=== PATIENT | female | born 1950 | race Caucasian/White ===

== ENCOUNTER 2020-02-12 07:02 | Day surgery (SDC) | payer MEDICARE, SELFPAY ==
--- NOTE | 2020-02-11 14:04 | P.CONAN_ITS ---
Documented by User: Sheila Garcia 02/11/20 14:12 HPI - Anesthesia Eval Consult details Narrative: 69yo F for [facility] Past Medical History Medical History Afib Allergic rhinitis Hyperlipidemia Surgical History Surgical History H/O section H/O dilation and curettage Social History Social History Smoking Status: Never smoker Second Hand Smoke Exposure: No Use of substances other than those prescribed or required for medical reasons: No Advance Directives: No Advance Directives Information Provided: No Advance Directives on File: No Recently lost weight without trying: No Meds Allergies Allergy/AdvReac Type Severity Reaction Status Date / Time No Known Allergies Allergy Verified 02/12/20 07:26 Home Medications Medication Instructions Recorded Confirmed Type flecainide 1 tab PO BID 02/12/20 02/12/20 History metoprolol succinate 0.5 tab PO DAILY 02/12/20 02/12/20 History rivaroxaban [Xarelto] 1 tab PO DAILY 02/12/20 02/12/20 History rosuvastatin 1 tab PO DAILY 02/12/20 02/12/20 History Exam Exam Date and Time: February 11, 2020 1404 Pertinent Lab Results Pertinent Lab Results: 01/16/20 CBC and Profile grossly nml EKG 12/11/19 NSR @ 73, LAFB, ?LVH Stress MIBI 01/01/20 = Neg Assessment and Plan Assessment Anesthesia Assessment: Chart Reviewed (02/11/20 HT) Documented by User: Maryann Willis 02/12/20 08:24 [facility] Past Medical History Medical History Afib Allergic rhinitis Hyperlipidemia Surgical History Surgical History H/O section H/O dilation and curettage Social History Social History Smoking Status: Never smoker Second Hand Smoke Exposure: No Use of substances other than those prescribed or required for medical reasons: No Advance Directives: No Advance Directives Information Provided: No Advance Directives on File: No Recently lost weight without trying: No Meds Allergies Allergy/AdvReac Type Severity Reaction Status Date / Time No Known Allergies Allergy Verified 02/12/20 07:26 Home Medications Medication Instructions Recorded Confirmed Type flecainide 1 tab PO BID 02/12/20 02/12/20 History metoprolol succinate 0.5 tab PO DAILY 02/12/20 02/12/20 History rivaroxaban [Xarelto] 1 tab PO DAILY 02/12/20 02/12/20 History rosuvastatin 1 tab PO DAILY 02/12/20 02/12/20 History Exam Height,Weight and Vital Signs: Vital Signs Temp Pulse Resp BP Pulse Ox 02/12/20 07:32 97.1 F 65 18 164/79 H 97 Intake and Output 02/11/20 02/12/20 02/12/20 22:59 06:59 14:59 Other: NPO Yes Weight 83.915 kg Patient Weight 02/13/20 06:59 Weight 83.915 kg Vital Signs Temperature 97.1 F 02/12/20 07:32 Pulse Rate 65 02/12/20 07:32 Respiratory Rate 18 02/12/20 07:32 Blood Pressure 164/79 H 02/12/20 07:32 Pulse Oximetry 97 02/12/20 07:32 Temperature 97.1 F 02/12/20 07:32 Pulse Rate 65 02/12/20 07:32 Respiratory Rate 18 02/12/20 07:32 Blood Pressure 164/79 H 02/12/20 07:32 Pulse Oximetry 97 02/12/20 07:32 Airway Mallampati Class: II TM Dist: >3cm Neck ROM: Full Partial: Upper and Lower Heart: RRR Lungs: Clear Assessment and Plan Assessment Anesthesia Assessment: Anesthesia Plan Discussed, Consent Obtained and Chart Reviewed Final Anesthetic Review NPO: Yes ASA Class: II Final Preanesthetic Review: No Changes in Pt Med Stat, Meds & Allergies Reviewed, Consent Obtained/Reviewed, Med/Surg/Anes Hx Reviewed and Anes Risks/Benef Reviewed Patient Risk: Intermediate Procedure Risk: Intermediate Anesthetic Plan Anesthetic Plan: GA Disposition: Standard PACU Documented by User: Joss Tellez CRNA 02/12/20 08:21 [facility] Past Medical History Medical History Afib Allergic rhinitis Hyperlipidemia Surgical History Surgical History H/O section H/O dilation and curettage Social History Social History Smoking Status: Never smoker Second Hand Smoke Exposure: No Use of substances other than those prescribed or required for medical reasons: No Advance Directives: No Advance Directives Information Provided: No Advance Directives on File: No Recently lost weight without trying: No Meds Allergies Allergy/AdvReac Type Severity Reaction Status Date / Time No Known Allergies Allergy Verified 02/12/20 07:26 Home Medications Medication Instructions Recorded Confirmed Type flecainide 1 tab PO BID 02/12/20 02/12/20 History metoprolol succinate 0.5 tab PO DAILY 02/12/20 02/12/20 History rivaroxaban [Xarelto] 1 tab PO DAILY 02/12/20 02/12/20 History rosuvastatin 1 tab PO DAILY 02/12/20 02/12/20 History
[2020-02-12] VITALS (7 sets, daily range): BP systolic 132–164; BP diastolic 67–79; PULSE 65–92; RESP 16–18; TEMP 36.1–36.2; O2SAT 97–98; BMI 32.8
--- NOTE | 2020-02-12 07:39 | P.CONAN_ITS ---
FORMERLY [facility], [facility] Past Medical History Medical History (Updated 02/12/20 @ 07:24 by Diana Waters RN) Afib Allergic rhinitis Hyperlipidemia Surgical History Surgical History (Updated 02/11/20 @ 14:06 by Sheila Garcia) H/O section H/O dilation and curettage Social History Social History Advance Directives: No Advance Directives Information Provided: No Meds Allergies Allergy/AdvReac Type Severity Reaction Status Date / Time No Known Allergies Allergy Verified 02/12/20 07:26 Home Medications Medication Instructions Recorded Confirmed Type flecainide 1 tab PO BID 02/12/20 02/12/20 History metoprolol succinate 0.5 tab PO DAILY 02/12/20 02/12/20 History rivaroxaban [Xarelto] 1 tab PO DAILY 02/12/20 02/12/20 History rosuvastatin 1 tab PO DAILY 02/12/20 02/12/20 History Exam Exam Date and Time: February 12, 2020 0739 Height,Weight and Vital Signs: Height 5 ft 3 in Weight 83.915 kg Last Vital Signs Temp 97.1 F 02/12/20 07:32 Pulse 65 02/12/20 07:32 Resp 18 02/12/20 07:32 BP 164/79 H 02/12/20 07:32 Pulse Ox 97 02/12/20 07:32 Airway Mallampati Class: II TM Dist: >3cm Neck ROM: Full Partial: Upper and Lower Heart: RRR Lungs: Clear
[2020-02-12] MEDS: Acetaminophen 325 MG TABLET 650 MG PO (07:45)
[2020-02-12] MEDS: Lactated Ringers 1,000 ML 100 ML IVCONT (08:00)
--- NOTE | 2020-02-12 13:53 | P.BOP_ITS ---
Brief Operative Note Date of procedure: 02/12/20 Pre-op diagnosis: Symptomatic cholelithiasis Post-op diagnosis: same Procedure: Laparoscopic cholecystectomy Implants: none Anesthesia: DEANNE Surgeon: Denilson Wilkins Production Material Handler: Mulu Alas Estimated blood loss (mL): 2 Pathology: other (gallbladder) Condition: stable Disposition: PACU
--- NOTE | 2020-02-12 15:19 | W.PM.OPN ---
Operative Note Operative Note Narrative: Preoperative diagnosis: Symptomatic cholelithiasis Postoperative diagnosis: Symptomatic cholelithiasis Procedure: Laparoscopic cholecystectomy Indication for procedure: This is a 69-year-old female presented with complaints of abdominal pain in the right upper quadrant noted on ultrasound the abdomen to have multiple gallstones within the gallbladder. She presents today for laparoscopic or possible open cholecystectomy. Operative findings: Patient was found to have multiple gallstones within the gallbladder with minimal inflammation surrounding the gallbladder wall. No adhesions were noted to the gallbladder. Specimen: Gallbladder Estimated blood loss: 5 mL Complications: None Procedure details: Patient was brought to the OR and placed in a supine position. After administering general anesthesia the patient's abdomen was prepped with ChloraPrep and draped in a sterile fashion. A surgical time-out was called the consent confirmed. Patient received preoperative antibiotics and Venodyne boots were in place. Local anesthesia consisting of 0.75% Sensorcaine was then infiltrated around the umbilicus. A 5 mm incision was then made around the umbilicus. Veress needle was then inserted while elevating abdominal cavity with towel clips. After a positive drop test, the abdomen was insufflated to a pressure of 15 mm of mercury. The Veress needle was removed and a 5 mm trocar inserted. The camera was inserted in the abdomen explored. No injury was noted from the insertion site. A 12 mm trocar was then placed in the epigastrium and 2 5 mm trocars placed in the right upper quadrant. The patient was then placed in a reverse Trendelenburg position and rotated to the left. The gallbladder was grasped with the fundus retracted cephalad. Infundibulum was grasped with and retracted away from the liver bed. Peritoneum was then dissected off of the infundibulum to reveal the junction with the cystic duct. Cystic artery was noted just below a node of Calot slightly medial to the cystic duct. After obtaining a critical view the cystic duct and cystic artery were doubly clipped and divided. The gallbladder was then dissected off the liver bed using electrocautery. Hemostasis was assured all times using electrocautery. The gallbladder was then placed in an Endo-Catch bag and brought out through the epigastric incision. The liver bed was then irrigated and suctioned dry. No bleeding or bile duct leak could be identified. CO2 was then evacuated and all trocars removed. Fascia was closed at the epigastric incision using a [id number] 0 Polysorb suture. Skin was closed in all incisions using a subcuticular 4 0 Polysorb suture. Steri-Strips 2 x 2 gauze and Tegaderm were then applied. The patient tolerated the procedure well. Sponge, instrument and needle counts were reported as correct. The patient was transferred to PACU in stable condition.
== END 2020-02-12 11:40 | disposition home or self-care (01) ==
PROVIDERS: PCP Internal Medicine; Visit Provider Surgery
PROC: 0FT44ZZ Resection of Gallbladder, Percutaneous Endoscopic Approach (ICD-10-PCS; CPT 47562; principal; 2020-02-12 08:30)
DX: K80.10 Calculus of gallbladder with chronic cholecystitis without obstruction (principal); I48.91 Unspecified atrial fibrillation; J30.9 Allergic rhinitis, unspecified; E78.5 Hyperlipidemia, unspecified; Z79.899 Other long term (current) drug therapy
CPT/HCPCS: 47562; 88304; J1100; J2250; J2405; J3010; Q0163

== ENCOUNTER → 2020-02-20 11:03 | Outpatient (BNVA) | payer MEDICARE, SELFPAY | PROVIDERS: PCP Internal Medicine; Visit Provider Surgery | DX: K80.20 Calculus of gallbladder without cholecystitis without obstruction (principal) | CPT/HCPCS: 99212 ==

== ENCOUNTER 2020-02-20 17:48 | Outpatient (REF) | payer MEDICARE, SELFPAY | END 2020-02-20 17:49 | disposition home or self-care (01) | LOC: HO.LNP 17:48 | PROVIDERS: Visit Provider Hospitalist | DX: R30.0 Dysuria (principal) | CPT/HCPCS: 87086; 87088; 87186 ==

== ENCOUNTER → 2020-03-22 12:18 | Outpatient (BNVA) | payer MEDICARE, SELFPAY | PROVIDERS: PCP Internal Medicine; Referring Provider Internal Medicine; Visit Provider Internal Medicine Cardiovascular Disease | DX: I48.0 Paroxysmal atrial fibrillation (principal); E78.5 Hyperlipidemia, unspecified; Z79.01 Long term (current) use of anticoagulants; Z79.899 Other long term (current) drug therapy | CPT/HCPCS: 93005; 99212 ==

== ENCOUNTER → 2020-03-31 13:16 | Outpatient (BNVA) | payer MEDICARE, SELFPAY | PROVIDERS: PCP Internal Medicine; Visit Provider Surgery | DX: K64.4 Residual hemorrhoidal skin tags (principal); K64.8 Other hemorrhoids; L29.0 Pruritus ani | CPT/HCPCS: 46600; 99202 ==

== ENCOUNTER 2020-06-01 06:53 | Outpatient (REF) | payer MEDICARE, SELFPAY ==
[2020-06-01 07:25] LABS: Hematocrit 44.3 % (37-47); Hemoglobin 14.5 g/dl (12.0-16.0); Mean Corpuscular HGB Conc 32.7 g/dl (31.0-35.0); Mean Corpuscular Hemoglobin 28.8 pg (27.0-33.0); Mean Corpuscular Volume 88.1 fL (80-98); Mean Platelet Volume 11.4 fL (9.4-12.3); Platelet Count 204 X10*3/uL (160-400); Red Blood Count 5.03 X10*6/uL (4.20-5.50); Red Cell Distribution Width 12.3 % (11.0-16.0); White Blood Count 5.2 X10*3/uL (4.8-10.8)
[2020-06-01 07:44] LABS: Alanine Aminotransferase 19 U/L (0-31); Alkaline Phosphatase 73 U/L (39-117); Anion Gap 12 (12-20); Aspartate Amino Transferase 20 U/L (5-31); Bilirubin Total 1.2 mg/dL (0.0-1.0); Blood Urea Nitrogen 16 mg/dL (9-16); Calcium 9.2 mg/dL (8.4-10.2); Carbon Dioxide 32 mmol/L (22-29); Chloride 104 mmol/L (96-108); Cholesterol 197 mg/dL; Estimated Glomerular Filt Rate > 60; Glucose Fasting 93 mg/dL (60-99); HDL Cholesterol 42 mg/dL; LDL Cholesterol Calculated 109 mg/dl; Potassium 4.5 mmol/l (3.3-5.1); Sodium 143 mmol/L (135-145); Total Protein 6.1 g/dL (6.5-8.0); Triglycerides 232 mg/dL
[2020-06-01 08:05] LABS: Thyroid Stimulating Hormone 1.13 uIU/mL (0.32-4.0)
== END 2020-06-01 06:54 | disposition home or self-care (01) ==
LOC: HO.LAB 06:53
PROVIDERS: PCP Internal Medicine; Visit Provider Internal Medicine
DX: E78.5 Hyperlipidemia, unspecified (principal); L29.0 Pruritus ani; I48.0 Paroxysmal atrial fibrillation
CPT/HCPCS: 36415; 80053; 80061; 84443; 85027

== ENCOUNTER 2020-07-21 08:56 | Outpatient (REF) | payer MEDICARE, SELFPAY ==
[2020-07-22 09:19] LABS: BV Int Neg Control Negative (Negative); BV Int Pos Control Positive (Positive)
== END 2020-07-21 08:57 | disposition home or self-care (01) ==
LOC: HO.LAB 08:56
PROVIDERS: Visit Provider Nurse Practitioner Family
DX: R35.1 Nocturia (principal); N94.819 Vulvodynia, unspecified
CPT/HCPCS: 87086; 87480; 87510; 87660

== ENCOUNTER → 2020-09-16 08:49 | Outpatient (BNVA) | payer MEDICARE, SELFPAY | PROVIDERS: PCP Internal Medicine; Visit Provider Internal Medicine Cardiovascular Disease | DX: I48.0 Paroxysmal atrial fibrillation (principal); E78.5 Hyperlipidemia, unspecified | CPT/HCPCS: 93005; 99212 ==

== ENCOUNTER → 2021-03-28 08:42 | Outpatient (BNVA) | payer MEDICARE, SELFPAY | PROVIDERS: PCP Internal Medicine; Visit Provider Internal Medicine Cardiovascular Disease | DX: I48.0 Paroxysmal atrial fibrillation (principal); E78.5 Hyperlipidemia, unspecified | CPT/HCPCS: 93005; 99212 ==

== ENCOUNTER → 2021-09-26 08:38 | Outpatient (BNVA) | payer MEDICARE, SELFPAY | PROVIDERS: PCP Internal Medicine; Visit Provider Internal Medicine Cardiovascular Disease | DX: I48.0 Paroxysmal atrial fibrillation (principal); E78.5 Hyperlipidemia, unspecified | CPT/HCPCS: 93005; 99212 ==

== ENCOUNTER → 2022-04-03 09:00 | Outpatient (BNVA) | payer MEDICARE, SELFPAY | PROVIDERS: PCP Internal Medicine; Visit Provider Internal Medicine Cardiovascular Disease | DX: R94.31 Abnormal electrocardiogram [ECG] [EKG] (principal); I44.60 Unspecified fascicular block | CPT/HCPCS: 93005 ==

== ENCOUNTER 2022-04-18 08:26 | Outpatient (REF) | payer MEDICARE, SELFPAY ==
--- NOTE | ~2022-04-18 | XR_ITS ---
EXAMINATION: XR LUMBOSACRAL SPINE CLINICAL INFORMATION: Low back pain COMPARISON: None TECHNIQUE: Three views of the lumbosacral spine. FINDINGS: 5 nonrib-bearing lumbar-type vertebral bodies. No acute visible fracture or dislocation. Dextrocurvature centered at L2-L3. Grade 1 anterolisthesis of L1 on L2. Moderate multilevel degenerative changes with large lateral bridging osteophytes, disc space narrowing, endplate sclerosis, osteophyte formation, and lower lumbar spine facet arthropathy. Vertebral body heights and disc spaces are otherwise maintained. Posterior elements are intact. Paraspinal soft tissues are unremarkable. Atherosclerotic calcifications of the abdominal aorta. Bowel gas is unremarkable. Pelvic phleboliths are noted. Surgical clips in the right upper quadrant abdomen. XR/XR lumbar spine 2-3V IMPRESSION: 1. No acute visible fracture or dislocation. 2. Dextrocurvature centered at L2-L3. 3. Grade 1 anterolisthesis of L1 on L2. 4. Moderate multilevel degenerative changes.
== END 2022-04-18 08:27 | disposition home or self-care (01) ==
LOC: HO.XRAY 08:26
PROVIDERS: PCP Internal Medicine; Visit Provider Physician Assistant
DX: M54.50 Low back pain, unspecified (principal)
CPT/HCPCS: 72100

== ENCOUNTER → 2022-10-16 09:02 | Outpatient (BNVA) | payer MEDICARE, SELFPAY | PROVIDERS: PCP Internal Medicine; Visit Provider Internal Medicine Cardiovascular Disease | DX: I48.0 Paroxysmal atrial fibrillation (principal); E78.5 Hyperlipidemia, unspecified | CPT/HCPCS: 93005; 99212 ==

== ENCOUNTER 2023-04-16 08:34 | Outpatient (AMB) | payer MEDICARE, SELFPAY ==
--- NOTE | 2023-04-16 09:17 | AM.OFFVISNUR ---
Intake Intake Visit Reasons: EKG Intake Note: Pt here for f/up EKG. H/O afib. Feels good. No complaints. Hat Liner Required: No Accompanied by: Self / Same As Patient Allergies ciprofloxacin [From Cipro] Allergy (Unknown, Verified 03/28/21 08:44) Unknown nitroglycerin Allergy (Unknown, Verified 03/28/21 08:44) Unknown oxybutynin Allergy (Unknown, Verified 03/28/21 08:44) Unknown penicillin G Allergy (Unknown, Verified 03/28/21 08:44) Unknown sulfamethoxazole [From Bactrim] Allergy (Unknown, Verified 03/28/21 08:44) Unknown trimethoprim [From Bactrim] Allergy (Unknown, Verified 03/28/21 08:44) Unknown Medication List - Last Reconciled 04/16/23 by Sally Cooper, RN flecainide 50 mg PO BID menthol-zinc oxide 0.44-20.6 % (Calmoseptine) 1 appl topical QID PRN metoprolol succinate ER 12.5 mg (1/2 x 25 mg) PO DAILY 90 days rivaroxaban (Xarelto) 20 mg PO DAILY rosuvastatin 5 mg PO 3x a week; Followed by:: Dr. Pedro Nursing Note EKG completed, EKG auto-reading sinus rhythm at 68bpm. EKG on Dr. Pedro's desk for review and signature. Office Procedures EKG [id number], Complete Coding Level of Care Code Est Pt Level 1 (08217) CPT Codes EKG - CPT: 84198-[id number], Complete ([id number]) Time Spent (min) 15 Comment EKG, Medication Reconciliation, Documentation, Education
== END 2023-04-16 09:03 | disposition home or self-care (01) ==
PROVIDERS: PCP Internal Medicine; Visit Provider Internal Medicine
DX: I44.4 Left anterior fascicular block (principal); R94.31 Abnormal electrocardiogram [ECG] [EKG]
CPT/HCPCS: 93010

== ENCOUNTER → 2023-04-16 08:34 | Outpatient (BNVA) | payer MEDICARE, SELFPAY | PROVIDERS: PCP Internal Medicine; Visit Provider Internal Medicine | DX: I44.4 Left anterior fascicular block (principal); R94.31 Abnormal electrocardiogram [ECG] [EKG] | CPT/HCPCS: 93005 ==

== ENCOUNTER 2023-10-22 09:03 | Outpatient (REF) | payer MEDICARE, SELFPAY ==
[2023-10-22 10:50] LABS: Hematocrit 46.6 % (37.0-47.0); Hemoglobin 15.7 g/dl (12.0-16.0); Mean Corpuscular HGB Conc 33.7 g/dl (31.0-35.0); Mean Corpuscular Volume 89.1 fL (80.0-98.0); Mean Platelet Volume 11.6 fL (9.4-12.3); Platelet Count 189 X10*3/uL (160-400); Red Blood Count 5.23 X10*6/uL (4.20-5.50); White Blood Count 7.2 X10*3/uL (4.8-10.8)
[2023-10-22 11:12] LABS: Anion Gap 10 (12-20); Blood Urea Nitrogen 19 mg/dL (9-16); Carbon Dioxide 33 mmol/L (22-29); Chloride 104 mmol/L (96-108); Cholesterol 177 mg/dL (<200); Estimated Glomerular Filt Rate > 60; Glucose Random 78 mg/dL (60-115); HDL Cholesterol 45 mg/dL (>40); LDL Cholesterol Calculated 80 mg/dL (<100); Potassium 4.1 mmol/L (3.3-5.1); Sodium 143 mmol/L (135-145); Triglycerides 261 mg/dL (<150)
== END 2023-10-22 09:04 | disposition home or self-care (01) ==
LOC: HO.LAB 09:03
PROVIDERS: PCP Internal Medicine; Visit Provider Internal Medicine Cardiovascular Disease
DX: I48.0 Paroxysmal atrial fibrillation (principal); E78.5 Hyperlipidemia, unspecified
CPT/HCPCS: 36415; 80048; 80061; 85027; 93005; 99212

== ENCOUNTER 2023-10-22 09:03 | Outpatient (AMB) | payer MEDICARE, SELFPAY ==
[2023-10-22 09:04] VITALS: BP 120/68; PULSE 76; BMI 33.3
--- NOTE | 2023-10-22 09:04 | MHC.OFFVIS ---
Vital Signs 10/22/23 09:04 Height 5 ft 3 in Weight 188 lb BMI 33.3 BP 120/68 Blood Pressure Location Lt brachial Position Sitting Pulse 76 Intake Visit Reasons: 1 year follow up Intake Note: 1 year follow-up with ekg feeling good High Worker Required: No Allergies ciprofloxacin [From Cipro] Allergy (Unknown, Verified 03/28/21 08:44) Unknown nitroglycerin Allergy (Unknown, Verified 03/28/21 08:44) Unknown oxybutynin Allergy (Unknown, Verified 03/28/21 08:44) Unknown penicillin G Allergy (Unknown, Verified 03/28/21 08:44) Unknown sulfamethoxazole [From Bactrim] Allergy (Unknown, Verified 03/28/21 08:44) Unknown trimethoprim [From Bactrim] Allergy (Unknown, Verified 03/28/21 08:44) Unknown Medication List - Last Reconciled 10/22/23 by Devendra Pedro MD flecainide 50 mg PO BID menthol-zinc oxide 0.44-20.6 % (Calmoseptine) 1 appl topical QID PRN metoprolol succinate ER 12.5 mg (1/2 x 25 mg) PO DAILY 90 days rivaroxaban (Xarelto) 20 mg PO DAILY rosuvastatin 5 mg PO 3x a week; HPI Comments Details: Rabia comes for follow-up. She denies any symptoms of prolonged palpitation irregular heartbeat. Says earlier in this year she had very stressful personal life due to her 's health situation. During that time she did not have any cardiac symptoms. She remains very active and has no exertional chest pain or shortness of breath. Denies any bleeding issues or neurologic events. No orthopnea, PND, leg edema. Taking all her medications regularly. [facility] Medical History Allergic rhinitis GERD (gastroesophageal reflux disease) Hyperlipidemia Internal and external hemorrhoids without complication Paroxysmal atrial fibrillation Pruritus ani Vitamin D deficiency Vulvodynia Surgical History H/O section H/O dilation and curettage History of laparoscopic cholecystectomy (02/12/20) Family History Father Lung cancer CVD (cardiovascular disease) Mother No problems noted. Daughter CVD (cardiovascular disease) Afib Social History Alcohol intake: never Patient Tobacco Use Status: Never used Tobacco Second Hand Smoke Exposure: No Review of Systems Const Denies chills, Denies fatigue, Denies fever(s), Denies frequent falls, Denies weakness, Denies weight gain and Denies weight loss ENT Denies dizziness Card Denies chest pain, Denies leg edema, Denies lightheadedness, Denies palpitations, Denies dyspnea, Denies dyspnea on exertion, Denies orthopnea and Denies other (loss of consciousness) Resp Denies cough, Denies dyspnea and Denies dyspnea on exertion GI Denies hematochezia and Denies change in stool character Musc Denies abnormal gait, Denies muscle weakness, Denies numbness, Denies radiating pain into limb and Denies tingling Neuro Denies abnormal gait, Denies dizziness, Denies frequent falls, Denies numbness, Denies tingling and Denies weakness Endo Denies fatigue and Denies palpitations Physical Exam Vital Signs: Last Vital Signs Pulse 76 10/22/23 09:04 BP 120/68 10/22/23 09:04 BMI result Body Mass Index 33.3 Const General: cooperative, comfortable, no acute distress, alert, awake and well groomed Nutritional Appearance: obese Orientation/consciousness: patient oriented x3 Limitations: no limitations Neck Neck: Yes trachea midline, Yes supple and Yes no JVD Resp Effort & Inspection: normal respiratory effort Auscultation: clear to auscultation bilaterally Cardio Jugular venous distension: no JVD Palpation: normal PMI Rate: regular rate Rhythm: regular rhythm Heart sounds: S1 normal heart sound present and S2 normal heart sound present GI Auscultation: normal bowel sounds Skin General skin exam: no rashes or lesions noted Neuro General: patient oriented x3 and no focal motor deficits Extrem General: Yes no clubbing, cyanosis or edema Psych Appearance: grossly normal Office Procedures EKG Details: EKG shows normal sinus rhythm with left axis deviation with QS pattern in lead V1 V2 with mildly increased QTC interval [id number], Complete Assessment & Plan Assessment & Plan (1) Paroxysmal atrial fibrillation: Code(s): I48.0 - Paroxysmal atrial fibrillation Category: Medical Plan: Highly symptomatic paroxysmal atrial fibrillation which has remained suppressed on therapy with flecainide and low-dose metoprolol therapy. Continue the same. Been the pocket approach with extra flecainide as need be. Continue avoid stimulants. Stress mitigation strategies to be pursued. Will require EKGs every 6 months which she would like to pursue through your office. She is currently on full oral anticoagulation with Eliquis which should continue. She requires semi annual renal function test and annual CBC. Advised to call me with worsening symptoms. She is encouraged to continue to participate in regular physical activity and weight loss program. She understands and agrees. (2) Hyperlipidemia: Code(s): E78.5 - Hyperlipidemia, unspecified Category: Medical Plan: Hyperlipidemia on low-dose statin therapy. Advised lipid panel at least on annual basis. She has currently not having any symptoms suggestive of myocardial ischemia and does not require any further testing. Will follow up in the clinic in 1 year's time, sooner p.r.n.. Will obtain echocardiogram in 1 year's time. Orders: Orders Basic Metabolic Panel Today I48.0 - Paroxysmal atrial fibrillation Complete Blood Count no Diff Today I48.0 - Paroxysmal atrial fibrillation Lipid Panel Today E78.5 - Hyperlipidemia, unspecified Basic Metabolic Panel Today E78.5 - Hyperlipidemia, unspecified Coding Level of Care Code Est Pt Level 4 (84452) Diagnoses Paroxysmal atrial fibrillation I48.0 Hyperlipidemia E78.5 CPT Codes EKG - CPT: 91722-[id number], Complete ([id number])
== END 2023-10-22 09:41 | disposition home or self-care (01) ==
PROVIDERS: PCP Internal Medicine; Visit Provider Internal Medicine Cardiovascular Disease
DX: I48.0 Paroxysmal atrial fibrillation (principal); E78.5 Hyperlipidemia, unspecified
CPT/HCPCS: 93010; 99214

== ENCOUNTER 2024-04-22 07:40 | Outpatient (REF) | payer MEDICARE, SELFPAY ==
[2024-04-22 11:14] LABS: Cholesterol 188 mg/dL (<200); HDL Cholesterol 46 mg/dL (>40); LDL Cholesterol Calculated 104 mg/dL (<100); Triglycerides 192 mg/dL (<150)
== END 2024-04-22 07:41 | disposition home or self-care (01) ==
LOC: HO.10HDL 07:40
PROVIDERS: Visit Provider Internal Medicine Cardiovascular Disease
DX: I48.0 Paroxysmal atrial fibrillation (principal); E78.5 Hyperlipidemia, unspecified
CPT/HCPCS: 36415; 80061

== ENCOUNTER 2024-05-21 12:24 | Emergency (ER) | payer MEDICARE, SELFPAY ==
--- NOTE | ~2024-05-21 | XR_ITS ---
EXAMINATION: XR CHEST CLINICAL INFORMATION: Chest pain COMPARISON: X-ray dated May 04, 2019. TECHNIQUE: Frontal view of the chest was obtained. FINDINGS: Elevated left hemidiaphragm. Images of the interstitial lung markings with a pulmonary reticular pattern. No gross consolidation or pneumothorax. Cardiomediastinal silhouette is normal in size with calcified plaque aortic arch. Multilevel thoracic stenosis. XR/XR chest 1V IMPRESSION: Elevated left hemidiaphragm of uncertain etiology. Chronic interstitial lung disease. Electronically signed by: Boris Bentley MD 05/21/2024 01:30 PM EST
--- NOTE | 2024-05-21 12:30 | ECG_ITS ---
Test Reason : afib Blood Pressure : */* mmHG Vent. 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 rate has decreased by 69 bpm Referred By: Stephen Gomez Electronically Signed By: VINCENT JACK
[2024-05-21 12:45] VITALS: BP 160/78; PULSE 90; RESP 14; TEMP 37.2; O2SAT 93; BMI 35.1
--- NOTE | 2024-05-21 12:50 | ECG_ITS ---
Test Reason : cp Blood Pressure : */* mmHG Vent. 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 rate has increased by [address] now depressed in Lateral leads Referred By: Stephen Gomez Electronically Signed By: VINCENT JACK
--- NOTE | 2024-05-21 12:57 | ED.ARRPALP ---
HPI - Arrhythmia/Palpitations General Chief Complaint: Chest Pain Stated Complaint: Chest Pain Jaw Pain Time Seen by Provider: 05/21/24 12:40 Source: patient Mode of arrival: ambulatory Limitations: no limitations History of Present Illness ED Provider: Dr. Stephen Gomez HPI narrative: 74-year-old female with a history of hyperlipidemia, paroxysmal atrial fibrillation on Xarelto who presents emergency department for evaluation of choking episode and palpitations. The patient states that she was at lunch and she choked on a piece of cheese. She was able to cough up the cheese and then developed palpitations. The incident occurred around 12:00 hours. She states that her heart was beating rapidly and she knew that she was in atrial fibrillation. She also had bilateral jaw pain and chest pain which was 10/10 which is unusual for her. She states that her 1st episode of atrial fibrillation was 5 years prior and she was not had an episode since then. The patient is on flecainide 50 mg b.i.d. and she was instructed by her corporate director of pharmacy to take an extra 150 mg of flecainide if she felt like she was going into atrial fibrillation again. Patient took 50 mg of flecainide and then came to the emergency department for evaluation. To the emergency department she states that her chest pain had resolved but she still had bilateral jaw pain 3/10. Patient's initial EKG revealed atrial fibrillation with RVR at 155 beats per minute. Patient states she was not had any shortness of breath with exertion or chest pain with exertion. Related Data Home Medications ?Medication ?Instructions ?Recorded ?Confirmed rosuvastatin 5 mg tablet 5 mg PO .COMPLEX 03/22/20 10/22/23 Previous Rx's ?Medication ?Instructions ?Recorded menthol 0.44 %-zinc oxide 20.6 % 1 applic topical QID PRN skin 03/31/20 topical ointment in packet irritation #504 grams (Calmoseptine) flecainide 50 mg tablet 50 mg PO BID #180 tabs 02/12/24 rivaroxaban 20 mg tablet (Xarelto) 20 mg PO DAILY #90 tabs 02/12/24 metoprolol succinate 25 mg 12.5 mg (1/2 x 25 mg) PO DAILY 90 02/15/24 tablet,extended release 24 hr days #45 tabs Allergies Allergy/AdvReac Type Severity Reaction Status Date / Time ciprofloxacin Allergy Unknown Verified 05/21/24 12:49 nitroglycerin Allergy Unknown Verified 05/21/24 12:49 [From Nitroglyn] oxybutynin Allergy Unknown Verified 05/21/24 12:49 sulfamethoxazole Allergy Unknown Verified 05/21/24 12:49 [From Bactrim] trimethoprim [From Bactrim] Allergy Unknown Verified 05/21/24 12:49 Review of Systems Review of Systems: Yes all other systems are reviewed and are negative [facility] Past Medical History [facility] Narrative: Social history: She was in her is here in the emergency department with her. She denies tobacco, alcohol and drug use. Medical History Allergic rhinitis GERD (gastroesophageal reflux disease) Hyperlipidemia Internal and external hemorrhoids without complication Paroxysmal atrial fibrillation Pruritus ani Vitamin D deficiency Vulvodynia Surgical History H/O section H/O dilation and curettage History of laparoscopic cholecystectomy (02/12/20) Family History Family History Father Lung cancer CVD (cardiovascular disease) Mother No problems noted. Daughter CVD (cardiovascular disease) Afib Social History Social History Alcohol intake: never Patient Tobacco Use Status: Never used Tobacco Second Hand Smoke Exposure: No Physical Exam Vital Signs: Vital Signs: Last Vital Signs Temp 97.9 F 05/21/24 17:49 Pulse 64 05/21/24 17:49 Resp 16 05/21/24 17:49 BP 149/70 H 05/21/24 17:49 Pulse Ox 97 05/21/24 17:49 O2 Del Method Room Air 05/21/24 17:49 BMI result Body Mass Index 35.1 Initial vital signs revealed tachycardia with a rate of 150 beats per minute and elevated blood pressure 160/78 Exam: General: Awake, alert in no distress Head: Normocephalic, atraumatic EENT: PERRL, Lids normal, sclera normal, conjunctiva normal, nose normal , ears normal, throat without erythema or exudates Neck: Supple, no adenopathy Lung: breath sounds symmetric, no wheezing, rales or rhonchi Chest: symmetric movement, nontender Heart: regular rate and rhythm, normal S1, S2 no murmurs or rubs Abdomen: soft, non-tender, nondistended, normal bowel sounds Back: no vertebral tenderness, no CVAT Extremities: no deformities, moves all extremities symmetrically Neuro: Awake, alert, oriented, normal speech, cranial nerves intact, moves all extremities symmetrically Psych: Pleasant, cooperative Medications Administered Discontinued Medications Generic Name Dose Route Start Last Admin Trade Name Ashvin PRN Reason Stop Dose Admin Aspirin 81 mg 05/21/24 12:57 05/21/24 13:10 Aspirin 81 Mg Tab.Chew PO 05/21/24 12:58 81 mg ONCE STA Administration Diphenhydramine HCl 12.5 mg 05/21/24 13:18 05/21/24 14:09 Diphenhydramine Hcl 50 Mg/Ml Vial IVPUSH 05/21/24 13:19 Not Given ONCE ONE Morphine Sulfate 2 mg 05/21/24 12:58 05/21/24 13:11 Morphine Sulfate 4 Mg/Ml Cartridge IVPUSH 05/21/24 12:59 2 mg ONCE STA Administration Protocol Medical Decision Making Medical Decision Making MDM Narrative: 74-year-old female with a history of hyperlipidemia, paroxysmal atrial fibrillation on Xarelto who presents emergency department for evaluation of choking episode and palpitations. The patient knew that she was in atrial fibrillation and took an extra is a flecainide orally. Patient however had bilateral jaw pain and chest pain which was 10/10 which was new for her and she did not have this symptom when she had her last episode of atrial fibrillation 5 years prior. Patient's chest pain did resolve by the time she got to the emergency department but she had 3/10 bilateral jaw pain. Patient's initial heart rate was 150 beats per minute but the time my evaluation she had a normal heart rate and on the environmental monitoring technician she had spontaneous converted to a sinus rhythm. Differential diagnosis: ?Includes but is not limited to myocardial infarction, myocardial ischemia, atrial fibrillation with RVR, pneumothorax, electrolyte abnormalities, anemia Course: My interpretation patient's laboratory evaluation is as follows: CBC was normal. Elevated sodium 147. Elevated BUN 21. Elevated glucose 116. INR was 1.2. First troponin was 3.9 repeat troponin is due at 16:00 hours . Patient's initial 12 EKG was consistent with atrial fibrillation with RVR with a rate of 155 ST segment elevation or depression. Second EKG when the patient's spontaneously converted revealed a sinus rhythm with a rate of [address] segment elevation depression. One-view chest x-ray revealed no pneumothorax or congestive heart failure but the patient does have an elevated left hemidiaphragm but I do not think that this is related to the patient's presentation. . 17:47 The patient's repeat 3 hour troponin did go up by more than 50% from 3.9214.5 but he was below the normal limit of 17. I did discuss this with the covering corporate director of pharmacy Dr. Thao. He felt that this was not a significant increase in his most likely caused by her rapid ventricular rate. However angina needs to be considered as the cause of her chest pain and jaw pain therefore patient was advised to contact Dr. Pedro's office for a re-evaluation within the next 1-2 weeks. I told the patient that during this time she should not exert herself and take it easy. If she develops any neck, jaw, chest pain with shortness of breath with exertion and she should call 911 and return to the emergency department for re-evaluation. Admission/Observation Consideration of admission/observation: Escalation of care including admission/observation considered (Yes) Consult Healthcare Provider Management of the patient was discussed with: Label Printing Machinist Process Development Chemist, Dr. Thao Lab Data MDM Lab Attestation statement: I reviewed the patient's lab results. 05/21/24 13:06 05/21/24 13:06 Labs: Lab Results 05/21/24 05/21/24 Range/Units 13:06 16:32 WBC 5.8 (4.8-10.8) X10*3/uL RBC 4.95 (4.20-5.50) X10*6/uL Hgb 14.7 (12.0-16.0) g/dl Hct 43.6 (37.0-47.0) % MCV 88.1 (80.0-98.0) fL MCH 29.7 (27.0-33.0) pg MCHC 33.7 (31.0-35.0) g/dl RDW 13.0 (11.0-16.0) % Plt Count 191 (160-400) X10*3/uL MPV 10.7 (9.4-12.3) fL Immature Gran % (Auto) 0.3 (0.0-0.4) % Neut % (Auto) 71.0 (45-73) % Lymph % (Auto) 20.5 (20-40) % Hinds % (Auto) 6.6 (2-11) % Eos % (Auto) 1.4 (0-4) % Baso % (Auto) 0.2 (0-2) % Lymph # (Auto) 1.2 (1.2-4.9) X10*3/uL Hinds # (Auto) 0.4 (0.1-1.2) X10*3/uL Eos # (Auto) 0.1 (0.0-0.4) X10*3/uL Baso # (Auto) 0.0 (0.0-0.2) X10*3/uL Abs Immat Gran (auto) 0.02 (0.00-0.03) X10*3/uL Absolute Neuts (auto) 4.1 (2.0-8.3) x10*3/uL Absolute Nucleated RBC 0.000 (0.0-0.012) X10*3/uL Nucleated RBC % (auto) 0.0 (0.0-0.2) /100WBC PT 14.0 H (10.9-12.4) SEC INR 1.2 H (0.9-1.1) APTT 36.6 (26.0-36.8) SEC Sodium 147 H (135-145) mmol/L Potassium 4.2 (3.3-5.1) mmol/L Chloride 107 (96-108) mmol/L Carbon Dioxide 30 H (22-29) mmol/L Anion Gap 14 (12-20) BUN 21 H (9-16) mg/dL Creatinine 0.87 (0.5-1.4) mg/dL Estim Creat Clear Calc 61.3 Estimated GFR > 60 Random Glucose 116 H (60-115) mg/dL Calcium 9.4 (8.4-10.2) mg/dL Magnesium 2.1 (1.6-2.6) mg/dL Total Bilirubin 1.1 H (0.0-1.0) mg/dL AST 31 (5-31) U/L ALT 23 (0-31) U/L Alkaline Phosphatase 66 (39-117) U/L Troponin I High Sens 3.9 14.5 D (<3.5-17.0) ng/L Total Protein 6.6 (6.5-8.0) g/dL Albumin 4.1 (3.5-5.0) g/dL Independent Interpretation I performed an independent interpretation of an: EKG Interpretation: Independent interpretation patient's 1st EKG done at 12:20 hours is as follows: Atrial fibrillation with a rapid ventricular response of 155 beats per minute, normal QRS duration, prolonged QTC interval 488 millisecond, no ST segment elevation, no ST segment depression, poor R-wave progression V1 through V2, no significant T-wave abnormalities My independent interpretation of the patient's 2nd EKG done at 13:01 hours is as follows: Normal sinus rhythm rate of 86, normal KS interval, QRS duration and QTC interval, no ST segment elevation, no ST segment depression, poor R-wave progression V1 and V2 still present, no significant T-wave abnormalities My independent interpretation the patient's one-view chest x-ray is as follows: No pneumothorax, no CHF, elevated left hemidiaphragm Radiology Impression Discussion of test interpretation with radiology: I have reviewed the radiologist's reading. Radiologist Impression: XR chest 1V IMPRESSION: Elevated left hemidiaphragm of uncertain etiology. Chronic interstitial lung disease. Electronically signed by: Boris Bentley MD 05/21/2024 01:30 PM [facility] Independent Historian Clinical information obtained from an independent historian. History obtained from or confirmed by: Spouse External Record Review External record reviewed: Office record Chronic Conditions Patient?s care impacted by: Other (Hyperlipidemia) Critical Care Time Critical Care Time Critical Care Time: Yes Total Critical Care Time: 35 Attestation: Critical Care: The patient was critically ill with a high probability of imminent or life threatening deterioration. I spent greater than 30 minutes of discontinuous time evaluating the patient,delivering critical care at the bedside, discussing and evaluating pertinent data with consultants. Critical care time does not include time spent performing separately billable procedures or teaching. Total time spent performing critical care was 35 minutes. Discharge Plan Discharge Clinical Impression: Atrial fibrillation with rapid ventricular response, Chest pain, Jaw pain Patient Disposition: Home, Self-Care Instructions: Angina (ED) Additional Instructions: When you 1st came to the emergency department your EKG showed that you are in atrial fibrillation with a very fast heart rate of 155 beats per minute. You then spontaneously converted to a normal rhythm with a normal rate. Your blood work was unremarkable and your two high sensitive troponin I (marker of heart damage) were below 17 which is reassuring and suggests that you did not have a heart attack today. However, I am concerned that the pain that your having in your chest and jaw may be secondary to angina (decreased blood supply to your heart caused by blockage is in your heart arteries) I did discuss your presentation with the covering corporate director of pharmacy, Dr. Thao and he wants you to call the office to get a follow-up appointment with Dr. Pedro. I want you to take it easy, not exercise or strain yourself until your re-evaluated by Dr. Pedro. If you develop any chest, neck, jaw or arm pain with exertion or if you develop shortness of breath with exertion then I want you to return to the emergency department immediately for re-evaluation for possible heart attack or angina attack. Continue taking medications as prescribed by your providers. Follow-up with Dr. Pedro within 1-2 weeks. Please return to the emergency department if your symptoms get worse or if you develop any symptoms that are concerning to you. Prescriptions: No Action Xarelto 20 mg tablet 20 mg PO DAILY Qty: 90 3RF flecainide 50 mg tablet 50 mg PO BID Qty: 180 3RF metoprolol succinate 25 mg tablet extended release 24 hr 12.5 mg PO DAILY 90 Days Qty: 45 3RF rosuvastatin 5 mg tablet 5 mg PO .COMPLEX Rx Instructions: 5 mg PO 3x a week; Calmoseptine 0.44-20.6 % ointment in packet 1 applic topical QID PRN (Reason: skin irritation) Qty: 504 0RF Interventions: ED Discharge Assessment Last Done: 05/21/24 17:49 Discharge Date/Time: 05/21/24 17:50 Print Language: [place] Irish
[2024-05-21] MEDS: Aspirin 81 MG TAB.CHEW PO (13:10)
[2024-05-21] MEDS: Morphine Sulfate 4 MG/ML CARTRIDGE 2 MG IVPUSH (13:11)
[2024-05-21 13:12] LABS: MANUAL DIFF FLAG NO
[2024-05-21 13:17] LABS: Basophils Percent Auto 0.2 % (0-2); Eosinophils Absolute Auto 0.1 X10*3/uL (0.0-0.4); Eosinophils Percent Auto 1.4 % (0-4); Hematocrit 43.6 % (37.0-47.0); Hemoglobin 14.7 g/dl (12.0-16.0); Imm Gran Abs Auto 0.02 X10*3/uL (0.00-0.03); Imm Gran Pct Auto 0.3 % (0.0-0.4); Lymphocytes Absolute Auto 1.2 X10*3/uL (1.2-4.9); Lymphocytes Percent Auto 20.5 % (20-40); Mean Corpuscular HGB Conc 33.7 g/dl (31.0-35.0); Mean Corpuscular Hemoglobin 29.7 pg (27.0-33.0); Mean Corpuscular Volume 88.1 fL (80.0-98.0); Mean Platelet Volume 10.7 fL (9.4-12.3); Monocytes Absolute Auto 0.4 X10*3/uL (0.1-1.2); Monocytes Percent Auto 6.6 % (2-11); Neutrophils Absolute Auto 4.1 x10*3/uL (2.0-8.3); Platelet Count 191 X10*3/uL (160-400); Red Blood Count 4.95 X10*6/uL (4.20-5.50); White Blood Count 5.8 X10*3/uL (4.8-10.8)
[2024-05-21 13:19] LABS: INTERNATIONAL NORM RATIO 1.2 (0.9-1.1)
[2024-05-21 13:22] LABS: Partial Thromboplastin Time 36.6 SEC (26.0-36.8)
[2024-05-21 13:34] LABS: Alanine Aminotransferase 23 U/L (0-31); Albumin Level 4.1 g/dL (3.5-5.0); Alkaline Phosphatase 66 U/L (39-117); Anion Gap 14 (12-20); Aspartate Amino Transferase 31 U/L (5-31); Bilirubin Total 1.1 mg/dL (0.0-1.0); Blood Urea Nitrogen 21 mg/dL (9-16); Calcium 9.4 mg/dL (8.4-10.2); Carbon Dioxide 30 mmol/L (22-29); Chloride 107 mmol/L (96-108); Creatinine Clr Calc Pharmacy 61.3; Estimated Glomerular Filt Rate > 60; Glucose Random 116 mg/dL (60-115); Magnesium 2.1 mg/dL (1.6-2.6); Potassium 4.2 mmol/L (3.3-5.1); Sodium 147 mmol/L (135-145); Total Protein 6.6 g/dL (6.5-8.0)
[2024-05-21 13:36] LABS: Troponin-I High Sensitivity 3.9 ng/L (<3.5-17.0)
[2024-05-21 14:15] VITALS: BP 125/57; PULSE 79; RESP 14; TEMP 36.7; O2SAT 96
[2024-05-21 16:07] VITALS: BP 122/67; PULSE 67; RESP 25; TEMP 37.1; O2SAT 97
[2024-05-21 16:57] LABS: Troponin-I High Sensitivity 14.5 ng/L (<3.5-17.0)
[2024-05-21 17:43] VITALS: BP 149/70; PULSE 64; RESP 16; TEMP 36.6; O2SAT 97
[2024-05-21 17:49] VITALS: BP 149/70; PULSE 64; RESP 16; TEMP 36.6; O2SAT 97
== END 2024-05-21 17:50 | disposition home or self-care (01) ==
PROVIDERS: Emergency Provider Emergency Medicine Emergency Medical Services; PCP Internal Medicine
DX: I48.20 Chronic atrial fibrillation, unspecified (principal); R07.89 Other chest pain; R68.84 Jaw pain; J84.9 Interstitial pulmonary disease, unspecified; Z79.01 Long term (current) use of anticoagulants; Z79.899 Other long term (current) drug therapy
CPT/HCPCS: 36415; 71045; 80053; 83735; 84484; 85025; 85610; 85730; 93005; 96374; 99284; J2270

== ENCOUNTER → 2024-05-21 12:30 | Outpatient (BNV) | payer MEDICARE, SELFPAY | PROVIDERS: Emergency Provider Emergency Medicine Emergency Medical Services; PCP Internal Medicine; Visit Provider Internal Medicine | DX: R94.31 Abnormal electrocardiogram [ECG] [EKG] (principal) | CPT/HCPCS: 93010 ==

== ENCOUNTER → 2024-05-21 12:59 | Outpatient (BNV) | payer MEDICARE, SELFPAY | PROVIDERS: Emergency Provider Emergency Medicine Emergency Medical Services; PCP Internal Medicine; Visit Provider Radiology Diagnostic Radiology | DX: J98.6 Disorders of diaphragm (principal); J84.9 Interstitial pulmonary disease, unspecified | CPT/HCPCS: 71045 ==

== ENCOUNTER 2024-05-25 08:14 | Emergency (ER) | payer MEDICARE, SELFPAY ==
--- NOTE | 2024-05-25 | ECG_ITS ---
Test Reason : HTN/?PALPATATIONS Blood Pressure : */* mmHG Vent. 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
--- NOTE | ~2024-05-25 | CT_ITS ---
CLINICAL HISTORY: r o bleed CT head without contrast Comparison: None Findings: No intra-axial mass, midline shift, hydrocephalus, or acute hemorrhage. No significant atrophy-like change or white matter disease. The visualized paranasal sinuses and mastoid air cells are normal. The orbits are within normal limits. There is no acute fracture. IMPRESSION: 1. No acute intracranial findings This document has been electronically signed by: Sameer Coombs MD on 05/25/2024 12:27:24
[2024-05-25 08:17] VITALS: BP 183/78; PULSE 69; RESP 18; TEMP 36.1; O2SAT 99; BMI 33.4
[2024-05-25 08:39] LABS: MANUAL DIFF FLAG NO
[2024-05-25 08:41] LABS: Basophils Percent Auto 0.6 % (0-2); Eosinophils Absolute Auto 0.1 X10*3/uL (0.0-0.4); Eosinophils Percent Auto 1.4 % (0-4); Hematocrit 45.2 % (37.0-47.0); Hemoglobin 15.3 g/dl (12.0-16.0); Imm Gran Abs Auto 0.01 X10*3/uL (0.00-0.03); Imm Gran Pct Auto 0.2 % (0.0-0.4); Lymphocytes Absolute Auto 1.3 X10*3/uL (1.2-4.9); Lymphocytes Percent Auto 24.5 % (20-40); Mean Corpuscular HGB Conc 33.8 g/dl (31.0-35.0); Mean Corpuscular Hemoglobin 29.6 pg (27.0-33.0); Mean Corpuscular Volume 87.4 fL (80.0-98.0); Mean Platelet Volume 10.7 fL (9.4-12.3); Monocytes Absolute Auto 0.4 X10*3/uL (0.1-1.2); Monocytes Percent Auto 8.5 % (2-11); Neutrophils Absolute Auto 3.3 x10*3/uL (2.0-8.3); Neutrophils Percent Auto 64.8 % (45-73); Platelet Count 188 X10*3/uL (160-400); Red Blood Count 5.17 X10*6/uL (4.20-5.50); Red Cell Distribution Width 12.9 % (11.0-16.0); White Blood Count 5.2 X10*3/uL (4.8-10.8)
[2024-05-25 08:55] LABS: Anion Gap 10 (12-20); Blood Urea Nitrogen 15 mg/dL (9-16); Calcium 9.2 mg/dL (8.4-10.2); Carbon Dioxide 28 mmol/L (22-29); Chloride 109 mmol/L (96-108); Creatinine Clr Calc Pharmacy 64.1; Estimated Glomerular Filt Rate > 60; Glucose Random 92 mg/dL (60-115); Potassium 4.4 mmol/L (3.3-5.1); Sodium 143 mmol/L (135-145)
[2024-05-25 09:05] LABS: Troponin-I High Sensitivity 4.3 ng/L (<3.5-17.0)
[2024-05-25 11:02] VITALS: BP 169/73; PULSE 84; RESP 16; O2SAT 99
[2024-05-25 11:05] VITALS: BP 134/53; O2SAT 99
--- NOTE | 2024-05-25 11:05 | ED_ITS ---
HPI - General Adult General Chief complaint: General Medical Stated complaint: Dizziness, HBP Time Seen by Provider: 05/25/24 11:04 History of Present Illness HPI narrative: Patient is a 74-year-old female with a history atrial fibrillation. History of being on Xarelto. Came in today having some dizziness. Patient on Sunday felt she was in atrial fibrillation. She took an extra dose flecainide. Subsequently patient was told to stop taking the flecainide if the symptoms resolved. Patient has felt the atrial fibrillation resolved but she feeling dizziness when she gets up. There is no fever no chills no coughing or congestion. No pain on urination. Patient from home. No travel history no leg swelling. Patient also complaining of mild headache from time to time. There is no gross change in vision. It is 3/10. There is no trauma. There is no focal weakness. No chest pain associated with these symptoms. No history of bloody stool. No diaphoresis. Related Data Home Medications ?Medication ?Instructions ?Recorded ?Confirmed rosuvastatin 5 mg tablet 5 mg PO .COMPLEX 03/22/20 10/22/23 Previous Rx's ?Medication ?Instructions ?Recorded menthol 0.44 %-zinc oxide 20.6 % 1 applic topical QID PRN skin 03/31/20 topical ointment in packet irritation #504 grams (Calmoseptine) flecainide 50 mg tablet 50 mg PO BID #180 tabs 02/12/24 rivaroxaban 20 mg tablet (Xarelto) 20 mg PO DAILY #90 tabs 02/12/24 metoprolol succinate 25 mg 12.5 mg (1/2 x 25 mg) PO DAILY 90 02/15/24 tablet,extended release 24 hr days #45 tabs Allergies Allergy/AdvReac Type Severity Reaction Status Date / Time ciprofloxacin Allergy Unknown Verified 05/25/24 08:20 nitroglycerin Allergy Unknown Verified 05/25/24 08:20 [From Nitroglyn] oxybutynin Allergy Unknown Verified 05/25/24 08:20 sulfamethoxazole Allergy Unknown Verified 05/25/24 08:20 [From Bactrim] trimethoprim [From Bactrim] Allergy Unknown Verified 05/25/24 08:20 Review of Systems 2 Review of Systems: Positive dizziness No chest pain no fever no chills no coughing No melena Yes all other systems are reviewed and are negative PMFSH Past Medical History Attestation statement: The following information was validated with the patient. Medical History Internal and external hemorrhoids without complication Pruritus ani Paroxysmal atrial fibrillation Hyperlipidemia Vitamin D deficiency Vulvodynia GERD (gastroesophageal reflux disease) Allergic rhinitis Surgical History History of laparoscopic cholecystectomy (02/12/20) H/O dilation and curettage H/O section Family History Family History Father Lung cancer CVD (cardiovascular disease) Mother No problems noted. Daughter CVD (cardiovascular disease) Afib Social History Social History Alcohol intake: never Patient Tobacco Use Status: Never used Tobacco Second Hand Smoke Exposure: No Advance Directives: No Advance Directives Information Provided: Yes Do you have a plan to hurt others: No Plan Physical Exam ED Vital Signs: Vital Signs - 24 hr 05/25/24 08:17 05/25/24 11:02 05/25/24 11:05 Temperature 97.0 F Pulse Rate 69 84 Respiratory Rate 18 16 Blood Pressure 183/78 H 169/73 H 134/53 L Pulse Oximetry 99 99 99 Oxygen Delivery Method Room Air Simple Mask BMI result Body Mass Index 33.4 Appearance: Alert. Oriented X3. No acute distress. Eyes: Pupils equal, round and reactive to light. ENT: Pharynx normal. Neck: Normal inspection. Neck supple. No lymph nodes noted. No crepitus CVS: Normal heart rate and rhythm. Pulses normal. Normal S1 and S2 Respiratory: No respiratory distress. Breath sounds normal. No Wheezing. No rales Abdomen: Soft and nontender. No rigidity. No distention. good BS x4 Skin: Skin warm and dry. Normal skin color. Normal skin turgor. Extremities: No lower extremity edema. Neurovascular intact to all extremities. No Lacerations. No Rash Neuro: Oriented X 3. No motor deficit. No sensory deficit. Moving all extermities. No slurred speech Medications Administered Discontinued Medications Generic Name Dose Route Start Last Admin Trade Name Freq PRN Reason Stop Dose Admin Acetaminophen 975 mg 05/25/24 11:23 05/25/24 11:36 Acetaminophen 325 Mg Tablet PO 05/25/24 11:24 975 mg ONCE ONE Administration Medical Decision Making Medical Decision Making [facility] Narrative: Patient's COVID flu RSV were all negative. Two sets of troponin was negative. Patient is urine showed no signs of infection. My interpretation of patient's EKG showed a sinus rhythm heart rate was 60 OK QRS QTC normal no acute ST segment elevation. Patient complaining of mild headache CT scan of the head was grossly negative. There is no evidence of bleed. There is no evidence of mass. Patient's sed rate and CRP are normal. No evidence for temporal arteritis. Neurologically intact. Patient's hemoglobin is 15 there is no evidence for anemia. Patient's case discussed with cardiology. Feel comfortable that this is not cardiac in origin. Patient is well-appearing. After Tylenol headache has subsided. Will discharge patient home close follow-up. Cardiology did not advise patient to be restarted on flecainide. Patient has appointment to see Cardiology for additional testing next week. Currently being discharged home in stable condition. Differential Diagnosis Differential Diagnoses: The differential diagnosis associated with the presentation includes Atrial fibrillation, intracranial bleed, mass, temporal arteritis, tension headache, meningitis, anemia, infection Admission/Observation Consideration of admission/observation: Escalation of care including admission/observation considered Consult Healthcare Provider Management of the patient was discussed with: Supervisor Cytogenetic Laboratory (Field Sales Executive) Lab Data [facility] Lab Attestation statement: I reviewed the patient's lab results. 05/25/24 08:34 05/25/24 08:34 Labs: Lab Results 05/25/24 05/25/24 05/25/24 Range/Units 08:34 12:20 12:52 WBC 5.2 (4.8-10.8) X10*3/uL RBC 5.17 (4.20-5.50) X10*6/uL Hgb 15.3 (12.0-16.0) g/dl Hct 45.2 (37.0-47.0) % MCV 87.4 (80.0-98.0) fL MCH 29.6 (27.0-33.0) pg MCHC 33.8 (31.0-35.0) g/dl RDW 12.9 (11.0-16.0) % Plt Count 188 (160-400) X10*3/uL MPV 10.7 (9.4-12.3) fL Immature Gran % (Auto) 0.2 (0.0-0.4) % Neut % (Auto) 64.8 (45-73) % Lymph % (Auto) 24.5 (20-40) % [place] % (Auto) 8.5 (2-11) % Eos % (Auto) 1.4 (0-4) % Baso % (Auto) 0.6 (0-2) % Lymph # (Auto) 1.3 (1.2-4.9) X10*3/uL [place] # (Auto) 0.4 (0.1-1.2) X10*3/uL Eos # (Auto) 0.1 (0.0-0.4) X10*3/uL Baso # (Auto) 0.0 (0.0-0.2) X10*3/uL Abs Immat Gran (auto) 0.01 (0.00-0.03) X10*3/uL Absolute Neuts (auto) 3.3 (2.0-8.3) x10*3/uL Absolute Nucleated RBC 0.000 (0.0-0.012) X10*3/uL Nucleated RBC % (auto) 0.0 (0.0-0.2) /100WBC ESR 7 (0-20) MM/HR Sodium 143 (135-145) mmol/L Potassium 4.4 (3.3-5.1) mmol/L Chloride 109 H (96-108) mmol/L Carbon Dioxide 28 (22-29) mmol/L Anion Gap 10 L (12-20) BUN 15 (9-16) mg/dL Creatinine 0.81 (0.5-1.4) mg/dL Estim Creat Clear Calc 64.1 Estimated GFR > 60 Random Glucose 92 (60-115) mg/dL Calcium 9.2 (8.4-10.2) mg/dL Troponin I High Sens 4.3 D 6.2 (<3.5-17.0) ng/L C-Reactive Protein 0.16 (< or = 0.50) mg/dL Urine Color Yellow Urine Appearance Clear Urine pH 7.5 (5.0-9.0) Ur Specific [employer] 1.010 (1.005-1.025) Urine Protein Negative (Neg-Trace) mg/dL Urine Glucose (UA) Negative (Negative) mg/dL Urine Ketones Negative (Negative) mg/dL Urine Blood Negative (Negative) Urine Nitrite Negative (Negative) Ur Leukocyte Esterase Trace H (Negative) Urine RBC 0-2 (0-2) /HPF Urine WBC 0-5 (0-5) /HPF Ur Squamous Epith Cells 0-2 (0-2) /HPF Urine Bacteria None Seen (None Seen) Hyaline Casts 0-2 (0-2) /LPF Influenza Type A (PCR) NEGATIVE (Negative) Influenza Type B (PCR) NEGATIVE (Negative) RSV RNA Qual (PCR) NEGATIVE (Negative) SARS-CoV-2 RNA (RT-PCR) NEGATIVE (Negative) Independent Interpretation I performed an independent interpretation of an: EKG (My interpretation patient's EKG as above) and CT Scan (My interpretation patient's CT scan of the head was grossly negative) Radiology Impression Discussion of test interpretation with radiology: I have reviewed the radiologist's reading. External Record Review External record reviewed: Inpatient record Discharge Plan Discharge Clinical Impression: Dizziness Patient Disposition: Home, Self-Care Instructions: Dizziness (ED) Prescriptions: No Action Xarelto 20 mg tablet 20 mg PO DAILY Qty: 90 3RF flecainide 50 mg tablet 50 mg PO BID Qty: 180 3RF metoprolol succinate 25 mg tablet extended release 24 hr 12.5 mg PO DAILY 90 Days Qty: 45 3RF rosuvastatin 5 mg tablet 5 mg PO .COMPLEX Rx Instructions: 5 mg PO 3x a week; Calmoseptine 0.44-20.6 % ointment in packet 1 applic topical QID PRN (Reason: skin irritation) Qty: 504 0RF Referrals: Devendra Pedro MD [Physician] - 05/28/24 Print Language: Slovak
[2024-05-25] MEDS: Acetaminophen 325 MG TABLET 975 MG PO (11:36)
[2024-05-25 11:52] LABS: C Reactive Protein 0.16 mg/dL (< or = 0.50)
[2024-05-25 12:27] LABS: Appearance Urine Clear; Color Urine Yellow; Glucose Urine UA Negative (Negative); Leukocyte Esterase Urine Trace (Negative); Nitrite Urine Negative (Negative); PH 7.5 (5.0-9.0); UMIC TRIGGER UACC YES; Urine Blood Negative (Negative); Urine Ketones Negative (Negative); Urine Protein Negative (Neg-Trace)
[2024-05-25 12:27] LABS: Erythrocyte Sedimentation Rate 7 MM/HR (0-20)
[2024-05-25 12:34] LABS: Bacteria Urine None Seen (None Seen); Hyaline Casts Urine 0-2 /LPF (0-2); RBC Urine 0-2 /HPF (0-2); Squamous Epithelial Cell Urine 0-2 /HPF (0-2); WBC Urine 0-5 /HPF (0-5)
[2024-05-25 13:03] LABS: Influenza A PCR NEGATIVE (Negative); Influenza B PCR NEGATIVE (Negative); Resp Syncy Virus RNA Qual PCR NEGATIVE (Negative); SARS COV2 PCR INHOUSE NEGATIVE (Negative)
[2024-05-25 13:38] LABS: Troponin-I High Sensitivity 6.2 ng/L (<3.5-17.0)
[2024-05-25 15:09] VITALS: BP 130/62; PULSE 72; RESP 18; TEMP 36.4; O2SAT 98
[2024-05-25 15:10] VITALS: BP 130/62; PULSE 72; RESP 18; TEMP 36.1; O2SAT 98
== END 2024-05-25 15:11 | disposition home or self-care (01) ==
PROVIDERS: Emergency Medicine; Emergency Provider Emergency Medicine Emergency Medical Services; PCP Internal Medicine
DX: R42 Dizziness and giddiness (principal); I48.91 Unspecified atrial fibrillation; R51.9 Headache, unspecified; R94.31 Abnormal electrocardiogram [ECG] [EKG]; Z03.818 Encounter for observation for suspected exposure to other biological agents ruled out; Z79.01 Long term (current) use of anticoagulants; Z79.899 Other long term (current) drug therapy
CPT/HCPCS: 0241U; 36415; 70450; 80048; 81001; 84484; 85025; 85652; 86140; 93005; 99283; 99284; 99285

== ENCOUNTER → 2024-05-25 08:26 | Outpatient (BNV) | payer MEDICARE, SELFPAY | PROVIDERS: Emergency Provider Emergency Medicine Emergency Medical Services; PCP Internal Medicine; Visit Provider Internal Medicine | DX: R94.31 Abnormal electrocardiogram [ECG] [EKG] (principal) | CPT/HCPCS: 93010 ==

== ENCOUNTER → 2024-05-25 11:20 | Outpatient (BNV) | payer MEDICARE, SELFPAY | PROVIDERS: Emergency Provider Emergency Medicine Emergency Medical Services; PCP Internal Medicine; Visit Provider Specialist | DX: R42 Dizziness and giddiness (principal) | CPT/HCPCS: 70450 ==

== ENCOUNTER → 2024-05-27 08:18 | Outpatient (REF) | payer MEDICARE, SELFPAY ==
--- NOTE | ~2024-05-27 | NM_ITS ---
EXERCISE MYOCARDIAL PERFUSION STUDY INDICATION: Chest pain on antiarrhythmic therapy TECHNIQUE: The patient was brought in for an exercise perfusion study on 05/27/2024. Patient performed exercise as per Jose Eduardo protocol and was injected 30 mCi of sestamibi once target heart rate was achieved. Images were obtained using the SPECT gamma camera interlaced with the gating device. Images were obtained in supine position. Resting perfusion study was performed on 05/28/2024. Patient was administered 30 mCi of sestamibi intravenously at rest. Images were then obtained in supine position. Total DLP 116 mGy-cm. Images were processed with the software and compared side to side in short axis, horizontal long axis and vertical long axis views. FINDINGS: Raw aquisition reviewed. Arms by the patient's side. The stress perfusion study showed diminished tracer uptake in the distal bilateral wall. There is also diminished tracer uptake in the basal septum/inferior septum. There is improvement with CT attenuation correction and hence could reflect artifactual etiologies. The gated study shows normal LV systolic function with calculated LVEF of 70%. LV cavity is normal in size. The gated study shows normal wall thickening and contraction of segments. Resting study shows diminished tracer uptake in the distal part of lateral wall. There is improvement with CT attenuation correction suggestive of soft tissue attenuation artifact. Gating at rest reveals normal wall motion with ejection fraction at 66%. The findings are consistent with partially reversible distal lateral perfusion defect; reversible basal septal defect. Could be artifactual versus true finding. NM/NM cardiolite stress test IMPRESSION: 1. Myocardial perfusion imaging study shows possible ischemia in the distal part of lateral wall spine; basal part of septum. Cannot exclude artifact. 2. Gated LVEF is 70% during stress and 66% during rest. 3. Transient ischemic dilatation not present. EKG component of the test reported separately. Electronically signed by: Kameron Thao MD 05/29/2024 08:52 AM TIFFANIE
--- NOTE | 2024-05-27 08:21 | CA_ITS ---
Acquisition Time: 2024-05-27 09:06:02 Total Exercise Time: 00:05:01 Test Indications: chest pain Medications: metoprolol rosuvastatin Protocol: JAMISON Max HR: 142 BPM 96% of Pred: 147 BPM Max BP: 156/78 mmHG Max Work Load: 7.0 METS Exercise Stress Test with exercise 5 mins 1 sec of Jamison Protocol, achieving 96% MPHR, with reports of moderate SOB, no chest discomfort, with isolated PVCs, with normotensive response withe exercise. Without EKG changes meeting criteria for ischemia. In recovery, breathing returned to baseline. Nuclear images pending. Test reviewed with Dr. Licona. Referred By: Devendra Pedro Electronically Signed By: Seun Linares
== END ==
LOC: HO.CARD 08:18
PROVIDERS: PCP Internal Medicine; Visit Provider Internal Medicine Cardiovascular Disease
DX: R07.9 Chest pain, unspecified (principal); I20.9 Angina pectoris, unspecified
CPT/HCPCS: 78452; 93017; A9500

== ENCOUNTER → 2024-05-27 08:21 | Outpatient (BNV) | payer MEDICARE, SELFPAY | PROVIDERS: PCP Internal Medicine | DX: I49.3 Ventricular premature depolarization (principal); R06.02 Shortness of breath | CPT/HCPCS: 78452; 93016; 93018 ==

== ENCOUNTER 2024-06-19 23:35 | Emergency (ER) | payer MEDICARE, SELFPAY ==
[2024-06-19 23:39] VITALS: BP 122/74; PULSE 150; O2SAT 95
[2024-06-19 23:42] VITALS: BP 103/70; PULSE 168; RESP 20; TEMP 36.6; O2SAT 98; BMI 35.6
--- NOTE | 2024-06-19 23:43 | ED_ITS ---
HPI - Arrhythmia/Palpitations General Chief Complaint: Arrhythmia/Palpitations Stated Complaint: rappid A fib, IV est. Cardizam Time Seen by Provider: 06/19/24 23:42 Source: patient Mode of arrival: EMS Limitations: no limitations History of Present Illness ED Provider: HPI narrative: Patient's history of paroxysmal AFib on Xarelto and hyperlipidemia comes here for palpitation episode started at 22:00 with heart rate in 180s also felt some chest heaviness and pain received 20 mg of Cardizem by EMS on arrival patient's heart rate was in 140s patient used to be on flecainide which was stopped 2 weeks ago started on Multaq which were also stopped last week because of the side effects patient's used to be on metoprolol which is also stopped by the director media patient denied any history of coronary artery disease patient was here on 05/21 with similar episode Related Data Home Medications ?Medication ?Instructions ?Recorded ?Confirmed rosuvastatin 5 mg tablet 5 mg PO .COMPLEX 03/22/20 10/22/23 Previous Rx's ?Medication ?Instructions ?Recorded menthol 0.44 %-zinc oxide 20.6 % 1 applic topical QID PRN skin 03/31/20 topical ointment in packet irritation #504 grams (Calmoseptine) rivaroxaban 20 mg tablet (Xarelto) 20 mg PO DAILY #90 tabs 02/12/24 amlodipine 5 mg tablet 5 mg PO DAILY #30 tabs 05/26/24 dronedarone 400 mg tablet (Multaq) 400 mg PO BID #60 tabs 05/30/24 Allergies Allergy/AdvReac Type Severity Reaction Status Date / Time ciprofloxacin Allergy Unknown Verified 06/19/24 23:47 nitroglycerin Allergy Unknown Verified 06/19/24 23:47 [From Nitroglyn] oxybutynin Allergy Unknown Verified 06/19/24 23:47 sulfamethoxazole Allergy Unknown Verified 06/19/24 23:47 [From Bactrim] trimethoprim [From Bactrim] Allergy Unknown Verified 06/19/24 23:47 Review of Systems 2 Review of Systems: Yes all other systems are reviewed and are negative PMFSH Past Medical History Medical History Internal and external hemorrhoids without complication Pruritus ani Paroxysmal atrial fibrillation Hyperlipidemia Vitamin D deficiency Vulvodynia GERD (gastroesophageal reflux disease) Allergic rhinitis Surgical History History of laparoscopic cholecystectomy (02/12/20) H/O dilation and curettage H/O section Family History Family History Father Lung cancer CVD (cardiovascular disease) Mother No problems noted. Daughter CVD (cardiovascular disease) Afib Social History Social History Alcohol intake: never Patient Tobacco Use Status: Never used Tobacco Smoked in Last 30 Days: No Second Hand Smoke Exposure: No Use of substances other than those prescribed or required for medical reasons: No Advance Directives: No Do you have a plan to hurt others: No Plan Physical Exam 2 Vital Signs: Vital Signs: Last Vital Signs Temp 98 F 06/20/24 03:06 Pulse 60 06/20/24 03:06 Resp 16 06/20/24 03:06 BP 110/62 06/20/24 03:06 Pulse Ox 98 06/20/24 03:06 O2 Del Method Room Air 06/20/24 03:06 BMI result Body Mass Index 35.6 Appearance: Alert. Oriented X3. No acute distress. Eyes: PERRLA, No Nystagmus no pallor or icterus ENT: Pharynx normal. Oral Mucosa moist Neck: Normal inspection. Neck supple. CVS: Tachycardic irregularly irregular no murmur. Pulses normal. Respiratory: No respiratory distress. Equal air entry bilateral, no wheezing/rales/rhonchi Abdomen: Soft and nontender. Bowel sounds are present, no mass palpable, no CVA tenderness Skin: Skin warm and dry. Normal skin color. Normal skin turgor. Extremities: No lower extremity edema. No calf tenderness Neuro: Oriented X 3. No motor deficit. Course Reevaluation(s) Reevaluation #1: Patient has converted to normal sinus rhythm with heart rate in 60s no chest pain no shortness a breath patient has received flecainide about an hour ago in 2 doses of metoprolol along with 20 mg of Cardizem by EMS Time: 02:06 Medications Administered Discontinued Medications Generic Name Dose Route Start Last Admin Trade Name Freq PRN Reason Stop Dose Admin Flecainide Acetate 200 mg 06/20/24 00:27 06/20/24 00:50 Flecainide Acetate 50 Mg Tablet PO 06/20/24 00:28 200 mg ONCE ONE Administration Sodium Chloride 1,000 mls @ 999 mls/hr 06/20/24 00:56 06/20/24 01:55 Ns IV 06/20/24 01:56 Infused .Q1H1M ONE Infusion Metoprolol Tartrate 5 mg 06/19/24 23:47 06/19/24 23:56 Metoprolol Tartrate 5 Mg/5 Ml Vial IVPUSH 06/19/24 23:48 5 mg ONCE ONE Administration Protocol Metoprolol Tartrate 5 mg 06/20/24 00:45 06/20/24 01:08 Metoprolol Tartrate 5 Mg/5 Ml Vial IVPUSH 06/20/24 00:46 5 mg ONCE ONE Administration Protocol Medical Decision Making Lab Data [facility] Lab Attestation statement: I reviewed the patient's lab results. 06/20/24 00:10 06/20/24 00:10 Labs: Lab Results 06/20/24 Range/Units 00:10 WBC 7.7 (4.8-10.8) X10*3/uL RBC 4.83 (4.20-5.50) X10*6/uL Hgb 14.2 (12.0-16.0) g/dl Hct 42.3 (37.0-47.0) % MCV 87.6 (80.0-98.0) fL MCH 29.4 (27.0-33.0) pg MCHC 33.6 (31.0-35.0) g/dl RDW 12.8 (11.0-16.0) % Plt Count 197 (160-400) X10*3/uL MPV 10.9 (9.4-12.3) fL Immature Gran % (Auto) 0.3 (0.0-0.4) % Neut % (Auto) 69.7 (45-73) % Lymph % (Auto) 20.2 (20-40) % [place] % (Auto) 8.1 (2-11) % Eos % (Auto) 1.2 (0-4) % Baso % (Auto) 0.5 (0-2) % Lymph # (Auto) 1.6 (1.2-4.9) X10*3/uL [place] # (Auto) 0.6 (0.1-1.2) X10*3/uL Eos # (Auto) 0.1 (0.0-0.4) X10*3/uL Baso # (Auto) 0.0 (0.0-0.2) X10*3/uL Abs Immat Gran (auto) 0.02 (0.00-0.03) X10*3/uL Absolute Neuts (auto) 5.4 (2.0-8.3) x10*3/uL Absolute Nucleated RBC 0.000 (0.0-0.012) X10*3/uL Nucleated RBC % (auto) 0.0 (0.0-0.2) /100WBC Sodium 143 (135-145) mmol/L Potassium 3.7 (3.3-5.1) mmol/L Chloride 111 H (96-108) mmol/L Carbon Dioxide 25 (22-29) mmol/L Anion Gap 11 L (12-20) BUN 29 H (9-16) mg/dL Creatinine 0.76 (0.5-1.4) mg/dL Estim Creat Clear Calc 70.6 Estimated GFR > 60 Random Glucose 114 (60-115) mg/dL Calcium 9.2 (8.4-10.2) mg/dL Magnesium 2.3 (1.6-2.6) mg/dL Total Bilirubin 0.7 (0.0-1.0) mg/dL AST 31 (5-31) U/L ALT 26 (0-31) U/L Alkaline Phosphatase 68 (39-117) U/L Troponin I High Sens 11.4 D (<3.5-17.0) ng/L Total Protein 6.7 (6.5-8.0) g/dL Albumin 4.0 (3.5-5.0) g/dL Independent Interpretation I performed an independent interpretation of an: EKG Interpretation: Atrial fibrillation with ventricular rate of 154 beats per minute no acute STT wave changes no acute ischemia Discharge Plan Discharge Clinical Impression: Paroxysmal atrial fibrillation Patient Disposition: Home, Self-Care Instructions: A-fib (Atrial Fibrillation) (ED) Additional Instructions: Continue your metoprolol 12.5 mg twice a day Follow up with your director media tomorrow regarding further management Prescriptions: No Action Xarelto 20 mg tablet 20 mg PO DAILY Qty: 90 3RF amlodipine 5 mg tablet 5 mg PO DAILY Qty: 30 0RF Multaq 400 mg tablet 400 mg PO BID Qty: 60 2RF Rx Instructions: must administer with a meal/food rosuvastatin 5 mg tablet 5 mg PO .COMPLEX Rx Instructions: 5 mg PO 3x a week; Calmoseptine 0.44-20.6 % ointment in packet 1 applic topical QID PRN (Reason: skin irritation) Qty: 504 0RF Interventions: ED Discharge Assessment Last Done: 06/20/24 03:06 Discharge Date/Time: 06/20/24 03:19 Print Language: Romansh
[2024-06-19 23:45] VITALS: PULSE 168
--- NOTE | 2024-06-19 23:48 | ECG_ITS ---
Test Reason : RHYTHM CHANGE Blood Pressure : */* mmHG Vent. Rate : 65 BPM Atrial Rate : 65 BPM P-R Int : 148 ms QRS Dur : 88 ms QT Int : 442 ms P-R-T Axes : 47 -47 45 degrees QTcB Int : 459 ms Normal sinus rhythm Left anterior fascicular block Minimal voltage criteria for LVH, may be normal variant ( Valentin product ) Septal infarct Abnormal ECG When compared with ECG of 19-Jun-2024 23:47, Sinus rhythm has replaced Afib Referred By: Zion Mueller Electronically Signed By: Jhonny Licona
[2024-06-19] MEDS: Metoprolol Tartrate 5 MG/5 ML VIAL IVPUSH (23:56)
[2024-06-20 00:17] LABS: MANUAL DIFF FLAG NO
[2024-06-20 00:19] LABS: Basophils Percent Auto 0.5 % (0-2); Eosinophils Absolute Auto 0.1 X10*3/uL (0.0-0.4); Eosinophils Percent Auto 1.2 % (0-4); Hematocrit 42.3 % (37.0-47.0); Hemoglobin 14.2 g/dl (12.0-16.0); Imm Gran Abs Auto 0.02 X10*3/uL (0.00-0.03); Imm Gran Pct Auto 0.3 % (0.0-0.4); Lymphocytes Absolute Auto 1.6 X10*3/uL (1.2-4.9); Lymphocytes Percent Auto 20.2 % (20-40); Mean Corpuscular HGB Conc 33.6 g/dl (31.0-35.0); Mean Corpuscular Hemoglobin 29.4 pg (27.0-33.0); Mean Corpuscular Volume 87.6 fL (80.0-98.0); Mean Platelet Volume 10.9 fL (9.4-12.3); Monocytes Absolute Auto 0.6 X10*3/uL (0.1-1.2); Monocytes Percent Auto 8.1 % (2-11); Neutrophils Absolute Auto 5.4 x10*3/uL (2.0-8.3); Neutrophils Percent Auto 69.7 % (45-73); Platelet Count 197 X10*3/uL (160-400); Red Blood Count 4.83 X10*6/uL (4.20-5.50); Red Cell Distribution Width 12.8 % (11.0-16.0); White Blood Count 7.7 X10*3/uL (4.8-10.8)
[2024-06-20 00:32] LABS: Alanine Aminotransferase 26 U/L (0-31); Alkaline Phosphatase 68 U/L (39-117); Anion Gap 11 (12-20); Aspartate Amino Transferase 31 U/L (5-31); Bilirubin Total 0.7 mg/dL (0.0-1.0); Blood Urea Nitrogen 29 mg/dL (9-16); Calcium 9.2 mg/dL (8.4-10.2); Carbon Dioxide 25 mmol/L (22-29); Chloride 111 mmol/L (96-108); Creatinine Clr Calc Pharmacy 70.6; Estimated Glomerular Filt Rate > 60; Glucose Random 114 mg/dL (60-115); Magnesium 2.3 mg/dL (1.6-2.6); Potassium 3.7 mmol/L (3.3-5.1); Sodium 143 mmol/L (135-145); Total Protein 6.7 g/dL (6.5-8.0)
[2024-06-20 00:40] LABS: Troponin-I High Sensitivity 11.4 ng/L (<3.5-17.0)
[2024-06-20] MEDS: Flecainide Acetate 50 MG TABLET 200 MG PO (00:50)
[2024-06-20 00:57] VITALS: BP 97/61; PULSE 139; RESP 18; O2SAT 98
[2024-06-20] MEDS: 0.9 % Sodium Chloride 1,000 ML 999 ML IV (00:57)
[2024-06-20 01:08] VITALS: BP 111/49; PULSE 143
[2024-06-20] MEDS: Metoprolol Tartrate 5 MG/5 ML VIAL IVPUSH (01:08)
[2024-06-20 02:00] VITALS: BP 108/64; PULSE 128; RESP 16
[2024-06-20 02:05] VITALS: BP 110/69; PULSE 63; RESP 16
--- NOTE | 2024-06-20 02:05 | ECG_ITS ---
Test Reason : RAPID AFIB Blood Pressure : */* mmHG Vent. Rate : 154 BPM Atrial Rate : * BPM P-R Int : * ms QRS Dur : 76 ms QT Int : 302 ms P-R-T Axes : * -39 98 degrees QTcB Int : 483 ms Atrial fibrillation with rapid ventricular response with premature ventricular or aberrantly conducted complexes Left axis deviation Septal infarct (cited on or before 04-May-2019) Abnormal ECG When compared with ECG of 25-May-2024 08:26, Atrial fibrillation has replaced Sinus rhythm Vent. rate has increased by 92 bpm T wave amplitude has increased in Anterior leads Nonspecific T wave abnormality now evident in Lateral leads Referred By: Zion Mueller Electronically Signed By: Jhonny Licona
[2024-06-20 03:06] VITALS: BP 110/62; PULSE 60; RESP 16; TEMP 36.6; O2SAT 98
== END 2024-06-20 03:19 | disposition home or self-care (01) ==
PROVIDERS: Emergency Provider Internal Medicine; PCP Internal Medicine
DX: I49.9 Cardiac arrhythmia, unspecified (principal); R00.2 Palpitations; I48.91 Unspecified atrial fibrillation; I48.0 Paroxysmal atrial fibrillation; R11.2 Nausea with vomiting, unspecified; R07.89 Other chest pain; Z79.01 Long term (current) use of anticoagulants; Z79.899 Other long term (current) drug therapy
CPT/HCPCS: 36415; 80053; 83735; 84484; 85025; 93005; 96361; 96374; 96376; 99285

== ENCOUNTER → 2024-06-19 23:48 | Outpatient (BNV) | payer MEDICARE, SELFPAY | PROVIDERS: Emergency Provider Internal Medicine; PCP Internal Medicine; Visit Provider Internal Medicine Cardiovascular Disease | DX: R94.31 Abnormal electrocardiogram [ECG] [EKG] (principal) | CPT/HCPCS: 93010 ==

== ENCOUNTER → 2024-06-20 02:05 | Outpatient (BNV) | payer MEDICARE, SELFPAY | PROVIDERS: Emergency Provider Internal Medicine; PCP Internal Medicine; Visit Provider Internal Medicine Cardiovascular Disease | DX: R94.31 Abnormal electrocardiogram [ECG] [EKG] (principal) | CPT/HCPCS: 93010 ==

== ENCOUNTER 2024-07-14 13:42 | Outpatient (REF) | payer MEDICARE, SELFPAY ==
[2024-07-14 14:55] LABS: Anion Gap 12 (12-20); Blood Urea Nitrogen 25 mg/dL (9-16); Carbon Dioxide 30 mmol/L (22-29); Chloride 107 mmol/L (96-108); Estimated Glomerular Filt Rate 46; Glucose Random 96 mg/dL (60-115); Potassium 4.2 mmol/L (3.3-5.1); Sodium 145 mmol/L (135-145)
--- OUTSIDE RECORDS SUMMARY | 2024-07-14 16:11 | XMS_ITS | Patient Health Record ---
Author Organization [facility] Address [address] [place] [address] Care Team Providers Care Licensed Final Expense Agents Name Role Phone Adonis Abreu MD Primary Care Provider Unava Annmarie Butt Unavailable [phone] Allergies Allergen (clinical drug ingredient) Drug/Non Drug Allergy documented on EMR Reaction Allergy Type Onset Date Status amoxicillin Amoxicillin hives Drug Allergy [place] ctive sulfamethoxazole / trimethoprim Bactrim stomach upset Drug Allergy Active ciprofloxacin Cipro stomach upset Drug Allergy Active Levaquin stomach upset Drug Allergy Act jose Reason For Referral No Information Medications Medication SIG (Take, Route, Frequency, Duration) Notes Start Date End Date Status Metoprolol Succinate ER 25 MG 1 tablet Orally Once a day for 30 day(s) Active Xarelto 20 MG 1/2 tab Orally Once a day Active Flecainide Acetate 50 MG as directed Ora lly twice a day Active Rosuvastatin Calcium 20 MG 1 tablet Oral ly Once a day Active Immunizations Vaccine Route Administration Date Status Comme nts COVID-19 Moderna Vaccine Unknown 07/08/2020 Administered Second Dose: 08/05/2020 Social History Tobacco Use: Social History Observation Description Date Details (start date - stop date) Never Smoker NA - NA Tobacco Use/Smoking Question Answer Notes Are you a: nonsmoker Alcohol Screen Question Answer Notes Did you have a drink containing alcohol in the p ast year? No Points 0 Interpretation Negative Tobacco use other than smoking: Question Answer Notes Are you an other tobacco user? 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 Plan Of Treatment Pending Test Test Name Order Date X ray : Foot, left 3V 10/05/2020 X ray : Foot, right 3V 10/05/2020 Insurance Providers Payer Name Payer Address Payer Phone Subscriber Number Group Number Insured Name Patient Relationship to Insured Coverage Start Date Coverage End Date Medicare National [employer] [address] [place] [address] [id number] Rabia Lowery Self - patient is the insured [employer] [address] [place] [address] [id number] Rabia Lowery Self - patient is the insured Medical (General) History Medical History History ICD Code Heart disease High blood pressure Measles Mumps Chicken pox A fib Surgical History Surgery Date(Month/Year) 04/26/78, 07/15/82 Gallbladder Surgery 02/12/20 Hospitalization History Reason Date(Month/Year) [facility] [place] 05[place]01
== END 2024-07-14 13:43 | disposition home or self-care (01) ==
LOC: HO.LAB 13:42
PROVIDERS: PCP Internal Medicine; Visit Provider Internal Medicine Cardiovascular Disease
DX: I48.0 Paroxysmal atrial fibrillation (principal)
CPT/HCPCS: 36415; 80048

== ENCOUNTER → 2024-10-13 08:46 | Outpatient (REF) | payer MEDICARE, SELFPAY ==
--- NOTE | 2024-10-13 08:49 | CA_ITS ---
Transthoracic Echocardiogram Patient (Last, First, Middle): Rabia Lowery M Gender: Female Date of : 1950 Age: 74 Procedure Date: 10/13/2024 Procedure Type: Transthoracic Echocardiogram Location: OP Height: 154. cm Weight: 85.28 kg BSA: 1.83 m2 Heart Rate: 55 bpm BP: 125 / 60 mmHg [employer]visor [employer]: LIZA Referring MD: Devendra Pedro MD Symptoms: I48.0 - Paroxysmal atrial fibrillation Study Quality: Adequate ECG Rhythm: Bradycardia Conclusions: - The left ventricular systolic function is normal. The calculated ejection fraction is 65% by biplane method. - There is moderate calcification of the aortic valve. There is mild aortic valve regurgitation. - There is mild mitral annular calcification. Findings Left Ventricle Normal left ventricular cavity size. There is mildly increased left ventricular wall thickness. The left ventricular systolic function is normal. The calculated ejection fraction is 65% by biplane method. There is no evidence of regional wall motion abnormalities. Evidence suggests grade I (mild) diastolic dysfunction. Right Ventricle Normal right ventricular cavity size and systolic function. Atria The left atrium is mildly dilated. The right atrium is normal in size. Aortic Valve There is moderate calcification of the aortic valve. There is no aortic valve stenosis. There is mild aortic valve regurgitation. Mitral Valve There is mild mitral annular calcification. There is trace mitral valve regurgitation. There is no mitral valve stenosis. Pulmonic Valve The pulmonic valve is likely normal. Tricuspid Valve There is trace tricuspid valve regurgitation. There is no evidence of pulmonary hypertension. Great Vessels The asc aorta is normal in size. Venous The inferior vena cava is normal in size and collapses greater than 50% with inspiration. Pericardium/Pleural There is a trivial pericardial effusion. Prior Study Comparison No significant change compared to prior study dated: 04/16/2019. Measurements 2D Linear Measurements IVSd: 1.01 0.6-0.9/0.6-1.0 cm LVIDd: 4.50 3.9-5.3/4.2-5.9 cm LVIDd Index: 2.46 2.4-3.2/2.2-3.1 cm/m2 LVIDs: 2.50 2.0-3.6 cm LVPWd: 1.07 0.7-1.1 cm LA Diam: 4.40 2.7-3.8/3.0-4.0 cm LAIDs Index: 2.40 1.5-2.3 cm/m2 LV Mass: 201.52 67-162/88-224 g LV Mass Index: 110.12 43-95/49-115 g/m2 LVOT Diam: 2.00 3.0+(-)1.3 cm 2D Systolic Function EF 4C: 68.30 >55% EF 2C: 62.20 >55% EF BiP: 65.40 >55% Mitral Valve MV Pk E: 0.87 MV PK A: 0.89 MV Decel Time: 243.00 E/A: 1.00 E'Lateral: 4.46 E'Medial: 4.13 E/E' Med: 21.10 E/E' Lat: 19.60 PHT: 71.00 MVA PHT: 3.10 Decel [place]: 3.59 Aortic Valve AoV Pk Nelson: 1.42 AoV Mn Nelson: 1.03 AoV VTI: 0.37 AoV Pk Grad: 8.00 Aov Mn Grad: 5.00 GEORGE Cont.VTI: 2.62 AI Pk Nelson: 3.80 AI [place]: 1.96 LVOT LVOT Pk Nelson: 1.15 LVOT Mn Nelson: 0.83 LVOT VTI: 0.31 LVOT Pk Grad: 5.00 LVOT Mn Grad: 3.00 LVOT Diam: 2.00 LVOT Area: 3.14 Diastolic Function MV Pk E: 0.87 MV Pk A: 0.89 E/A: 1.00 E'Medial: 4.13 E/E' Med: 21.10 E' Laterial: 4.46 E/E' Lat: 19.60 Right Ventricle TAPSE (mm): 23.20 TVS' Nelson: 11.60 Tricuspid Valve TR Pk Nelson: 1.59 TR Pk Grad: 10.00 RA Press: 3.00 RVSP: 13.00 Great Vessels Aorta Sinus of Valsalva: 3.30 2.0-3.5 cm Ao Asc: 3.80 2.1-3.4 cm Ao Arch: 3.10 Pulmonary Valve PV Pk Nelson: 0.72 Peak PV Grad: 2.00 Updated in Other Vendor System with Status of Final Kameron Thao MD electronically signed on 10/13/2024 11:53:12 AM with status of Final
--- OUTSIDE RECORDS SUMMARY | 2024-10-13 09:09 | XMS_ITS | Patient Health Record ---
Author Organization [facility] Address [address] [place] [address] Care Team Providers Care Practical Nurse Clinical Coordinator Name Role Phone Adonis Abreu MD Primary Care Provider Unava Annmarie Butt Unavailable [phone] Allergies Allergen (clinical drug ingredient) Drug/Non Drug Allergy documented on EMR Reaction Allergy Type Onset Date Status amoxicillin Amoxicillin hives Drug Allergy [place] ctive sulfamethoxazole / trimethoprim Bactrim stomach upset [...] Problem Status W/U Status Risk Notes Problem [id number] Hammer toe of right foot (M20.41) Active confirmed Problem 768952115 Hammer toe of left foot (M20.42) Active confirmed Problem 742543713 Neuroma of second interspace of left foot [...] Inc [address] [place] [address] [id number] Rabia Lowery Self - patient is the insured [employer] [address] [place] [address] [id number] Rabia Lowery Self - patient is the insured Medical (General) History Medical History History ICD Code Heart disease High blood pressure Measles Mumps Chicken pox A fib Surgical History Surgery Date(Month/Year) 04/26/78, 07/15/82 Gallbladder Surgery 02/12/20 Hospitalization History Reason Date(Month/Year) [facility] [place] 05/01
== END ==
LOC: HO.CARD 08:46
PROVIDERS: PCP Internal Medicine; Visit Provider Internal Medicine Cardiovascular Disease
DX: I48.0 Paroxysmal atrial fibrillation (principal)
CPT/HCPCS: 93306

== ENCOUNTER → 2024-10-13 08:49 | Outpatient (BNV) | payer MEDICARE, SELFPAY | PROVIDERS: PCP Internal Medicine; Visit Provider Internal Medicine | DX: I70.0 Atherosclerosis of aorta (principal); I35.1 Nonrheumatic aortic (valve) insufficiency; I34.81 Nonrheumatic mitral (valve) annulus calcification; I31.39 Other pericardial effusion (noninflammatory) | CPT/HCPCS: 93306 ==

== ENCOUNTER 2024-11-17 14:38 | Outpatient (AMB) | payer MEDICARE, SELFPAY ==
[2024-11-17 14:55] VITALS: BP 130/64; PULSE 63; BMI 33.3
--- NOTE | 2024-11-17 14:55 | A.OFFVIS_ITS ---
Vital Signs 11/17/24 14:55 Height 5 ft 3 in Weight 188 lb BMI 33.3 BP 130/64 Blood Pressure Location Lt brachial Position Sitting Pulse 63 Intake Visit Reasons: r/s 10/20/24 1 yr followup w/ekg Intake Note: 1 year follow-up with ekg Courier Driver Required: No Allergies lisinopril Allergy (Intermediate, Verified 10/23/24 10:05) Itching ciprofloxacin Allergy (Verified 06/19/24 23:47) Unknown nitroglycerin (From Nitroglyn) Allergy (Verified 06/19/24 23:47) Unknown oxybutynin Allergy (Verified 06/19/24 23:47) Unknown sulfamethoxazole (From Bactrim) Allergy (Verified 06/19/24 23:47) Unknown trimethoprim (From Bactrim) Allergy (Verified 06/19/24 23:47) Unknown Medication List - Last Reconciled 11/17/24 by Devendra Pedro MD flecainide 50 mg PO BID menthol-zinc oxide 0.44-20.6 % (Calmoseptine) 1 appl topical QID PRN metoprolol succinate ER 12.5 mg (1/2 x 25 mg) PO DAILY 90 days rivaroxaban (Xarelto) 20 mg PO DAILY rosuvastatin 5 mg PO 5x a week; valsartan 80 mg PO DAILY HPI Comments Details: Rabia comes for follow-up. She says she is now doing well on current flecainide therapy. She underwent a coronary CTA which showed nonobstructive atherosclerosis. She says she is tolerating valsartan very well with well controlled blood pressure at this point time. Overall she feels well. She denies any prolonged irregular heartbeat or palpitation. No bleeding issues or neurologic events. No exertional chest pain or shortness of breath. She says she remains very active around the house. [facility] Medical History Internal and external hemorrhoids without complication Pruritus ani Paroxysmal atrial fibrillation Hyperlipidemia Vitamin D deficiency Vulvodynia GERD (gastroesophageal reflux disease) Allergic rhinitis Surgical History History of laparoscopic cholecystectomy (02/12/20) H/O dilation and curettage H/O section Family History Father Lung cancer CVD (cardiovascular disease) Mother No problems noted. Daughter CVD (cardiovascular disease) Afib Social History Alcohol intake: never Patient Tobacco Use Status: Never used Tobacco Second Hand Smoke Exposure: No Review of Systems Const Denies chills, Denies fatigue, Denies fever(s), Denies frequent falls, Denies weakness, Denies weight gain and Denies weight loss ENT Denies dizziness Card Denies chest pain, Denies leg edema, Denies lightheadedness, Denies palpitations, Denies dyspnea, Denies dyspnea on exertion, Denies orthopnea and Denies other (loss of consciousness) Resp Denies cough, Denies dyspnea and Denies dyspnea on exertion GI Denies hematochezia and Denies change in stool character Musc Denies abnormal gait, Denies muscle weakness, Denies numbness, Denies radiating pain into limb and Denies tingling Neuro Denies abnormal gait, Denies dizziness, Denies frequent falls, Denies numbness, Denies tingling and Denies weakness Endo Denies fatigue and Denies palpitations Physical Exam Vital Signs: Last Vital Signs Pulse 63 11/17/24 14:55 BP 130/64 11/17/24 14:55 BMI result Body Mass Index 33.3 Const General: cooperative, comfortable, no acute distress, alert, awake and well groomed Nutritional Appearance: obese Orientation/consciousness: patient oriented x3 Limitations: no limitations Neck Neck: Yes trachea midline, Yes supple and Yes no JVD Resp Effort & Inspection: normal respiratory effort Auscultation: clear to auscultation bilaterally Cardio Jugular venous distension: no JVD Palpation: normal PMI Rate: regular rate Rhythm: regular rhythm Heart sounds: S1 normal heart sound present and S2 normal heart sound present GI Auscultation: normal bowel sounds Skin General skin exam: no rashes or lesions noted Neuro General: patient oriented x3 and no focal motor deficits Extrem General: Yes no clubbing, cyanosis or edema Psych Appearance: grossly normal Office Procedures EKG Details: EKG shows normal sinus rhythm with left axis deviation with poor R-wave progression with septal QS pattern most likely due to lead placement [id number], Complete Assessment & Plan Assessment & Plan (1) Paroxysmal atrial fibrillation: Code(s): I48.0 - Paroxysmal atrial fibrillation Category: Medical Plan: Highly symptomatic paroxysmal atrial fibrillation doing very well from rhythm control perspective. Continue rhythm control approach. Continue flecainide along with low-dose metoprolol therapy. Continue full oral anticoagulation, currently on Xarelto 20 mg daily. Semi annual renal function test and annual CBC should be pursued. Avoidance of stimulants was discussed advised to call me with any worsening symptoms. (2) CAD (coronary artery disease): Code(s): I25.10 - Atherosclerotic heart disease of [place] coronary artery without angina pectoris Category: Medical Plan: Coronary disease but this is not obstructive by coronary CTA. She currently has no exertional symptoms. Continue aggressive vascular risk factor modification. Continue aggressive blood pressure control. Continue lipid modification with target goal LDL less than 70 mg/dL. Advise annual lipid check. (3) HTN (hypertension): Code(s): I10 - Essential (primary) hypertension Category: Medical Plan: Hypertension which is currently well optimized on valsartan therapy. She is very happy with the valsartan therapy and is currently not having any side effects. Low-salt diet was discussed. Stress mitigation strategies were discussed. Will follow up in the clinic in 6 months for EKG in 1 year with me. Thank you for allowing me to partake in her care Coding Level of Care Code Est Pt Level 4 (37541) Complex EM visit Add On G2211 Diagnoses Paroxysmal atrial fibrillation I48.0 CAD (coronary artery disease) I25.10 HTN (hypertension) I10 CPT Codes EKG - CPT: 21615-[id number], Complete ([id number])
--- OUTSIDE RECORDS SUMMARY | 2024-11-17 15:10 | XMS_ITS | Patient Health Record ---
[facility] Address [address] [place] [address] Care Team Providers Care Lard Mixer Name Role Phone Adonis Abreu MD Primary Care Provider Unava Annmarie Butt Unavailable [phone] Allergies Allergen (clinical drug ingredient) Drug/Non Drug Allergy documented on EMR Reaction Allergy Type Onset Date Status amoxicillin Amoxicillin hives Drug Allergy [place] ctive sulfamethoxazole / trimethoprim Bactrim stomach upset Drug Allergy Active ciprofloxacin Cipro stomach upset Drug Allergy Active Levaquin stomach upset Drug Allergy Act jose Reason For Referral No Information Medications Medication SIG (Take, Route, Frequency, Duration) Notes Start Date End Date Status Metoprolol Succinate ER 25 MG 1 tablet Orally Once a day; Duration: 30 day(s) Active Xarelto 20 MG 1/2 [...] Problem Status W/U Status Risk Notes Problem Acquired hammer toe of right foot (875914208866 9105) Hammer toe of right foot (M20.41) Active confirmed Problem Acquired hammer toe of left foot (826953869599 9103) Hammer toe of left foot (M20.42) Active confirmed Problem Plantar nerve lesion (081398640) 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 Plan Of Treatment Pending Test Test Name Order Date X ray : Foot, left 3V 10/05/2020 X ray : Foot, right 3V 10/05/2020 Insurance Providers Payer Name Payer Address Payer Phone Subscriber Number Group Number Insured Name Patient Relationship to Insured Coverage Start Date Coverage End Date Medicare National Govt [facility] [address] [place] [address] [id number] Rabia Lowery Self - patient is the insured [employer] [address] [place] [address] [phone] [id number] Rabia Lowery Self - patient is the insured Medical (General) History Medical History History ICD Code Heart disease High blood pressure Measles Mumps Chicken pox A fib Surgical History Surgery Date(Month/Year) 04/26/78, 07/15/82 Gallbladder Surgery 02/12/20 [place] Reason [place] [facility] [place]
== END 2024-11-17 15:33 | disposition home or self-care (01) ==
LOC: HO.HCS 14:38
PROVIDERS: PCP Internal Medicine; Visit Provider Internal Medicine Cardiovascular Disease
DX: I48.0 Paroxysmal atrial fibrillation (principal); I25.10 Atherosclerotic heart disease of native coronary artery without angina pectoris; I10 Essential (primary) hypertension
CPT/HCPCS: 93010; 99214; G2211

== ENCOUNTER → 2024-11-17 14:38 | Outpatient (BNVA) | payer MEDICARE, SELFPAY | PROVIDERS: PCP Internal Medicine; Visit Provider Internal Medicine Cardiovascular Disease | DX: I48.0 Paroxysmal atrial fibrillation (principal); I25.10 Atherosclerotic heart disease of native coronary artery without angina pectoris; I10 Essential (primary) hypertension; Z79.899 Other long term (current) drug therapy | CPT/HCPCS: 93005; 99212 ==

== ENCOUNTER 2024-11-25 06:12 | Outpatient (REF) | payer MEDICARE, SELFPAY ==
--- OUTSIDE RECORDS SUMMARY | 2024-11-25 06:15 | XMS_ITS | Patient Health Record ---
[facility] Address [address] [place] [address] Care Team Providers Care Multisensor Intelligence Officer Name Role Phone Adonis Abreu MD Primary Care Provider Unava Annmarie Butt Unavailable [phone] Allergies Allergen (clinical drug ingredient) Drug/Non Drug Allergy documented on EMR Reaction Allergy Type Onset Date Status amoxicillin Amoxicillin hives Drug Allergy [place] ctive sulfamethoxazole / trimethoprim Bactrim stomach upset [...] Problem Acquired hammer toe of right foot ([id number] 9105) Hammer toe of right foot (M20.41) Active confirmed Problem Acquired hammer toe of left foot (738157980491 9103) Hammer toe of left foot (M20.42) Active confirmed Problem Plantar nerve lesion (004026730) 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 Plan Of Treatment Pending Test Test Name Order Date X ray : Foot, left 3V 10/05/2020 X ray : Foot, right 3V 10/05/2020 Insurance Providers Payer Name Payer Address Payer Phone Subscriber Number Group Number Insured Name Patient Relationship to Insured Coverage Start Date Coverage End Date Medicare National Govt [facility] [address] [place] [address] [id number] Rabia Lowery Self - patient is the insured [employer] [address] [place] [address] [id number] Rabia Lowery Self - patient is the insured Medical (General) History Medical History History ICD Code Heart disease High blood pressure Measles Mumps Chicken pox A fib Surgical History Surgery Date(Month/Year) 04/26/78, 07/15/82 Gallbladder Surgery 02/12/20 Hospitalization History Reason Date(Month/Year) [facility] [place] 05/01
[2024-11-25 07:47] LABS: Hematocrit 44.6 % (37.0-47.0); Hemoglobin 14.9 g/dl (12.0-16.0); Mean Corpuscular HGB Conc 33.4 g/dl (31.0-35.0); Mean Corpuscular Hemoglobin 29.6 pg (27.0-33.0); Mean Corpuscular Volume 88.7 fL (80.0-98.0); NRBC Abs Auto 0.000 X10*3/uL (0.0-0.012); NRBC Pct Auto 0.0 /100WBC (0.0-0.2); Platelet Count 179 X10*3/uL (160-400); Red Blood Count 5.03 X10*6/uL (4.20-5.50); White Blood Count 5.4 X10*3/uL (4.8-10.8)
[2024-11-25 08:45] LABS: Anion Gap 9 (12-20); Blood Urea Nitrogen 25 mg/dL (9-16); Calcium 9.4 mg/dL (8.4-10.2); Carbon Dioxide 29 mmol/L (22-29); Chloride 108 mmol/L (96-108); Cholesterol 177 mg/dL (<200); Estimated Glomerular Filt Rate 50; HDL Cholesterol 50 mg/dL (>40); Potassium 4.2 mmol/L (3.3-5.1); Sodium 142 mmol/L (135-145); Triglycerides 134 mg/dL (<150)
== END 2024-11-25 06:13 | disposition home or self-care (01) ==
LOC: HO.LAB 06:12
PROVIDERS: Nurse Practitioner Family; PCP Internal Medicine; Visit Provider Internal Medicine Cardiovascular Disease
DX: I25.10 Atherosclerotic heart disease of native coronary artery without angina pectoris (principal); I48.0 Paroxysmal atrial fibrillation
CPT/HCPCS: 36415; 80048; 80061; 85027